=== PATIENT | male | born 1960 | race Caucasian/White ===

== ENCOUNTER 2018-04-18 16:50 | Observation (INO) ==
--- NOTE | 2018-04-18 17:52 | Emergency Department Note ---
Disposition Clinical Impression: Jaundice, Scleral icterus, Transaminitis, Hyperbilirubinemia Disposition: Admitted As Inpatient Condition: Good Referrals: NONE,PCP [Primary Care Provider] - Edel Lim [Family Provider] - Forms: ED Satisfaction Letter Time of Disposition: 20:40 General Adult HPI - General Chief complaint: ED Weakness Stated complaint: Dark Urine / Weakness / Jaundice Time Seen by Provider: 04/18/18 17:24 Source: patient Mode of arrival: ambulatory Limitations: no limitations Nursing Notes Reviewed: Yes Vital Signs Reviewed: Yes - History of Present Illness HPI Narrative: Patient is a 57-year-old male that presents emergency department for painless jaundice. Patient states is been ongoing for the past 3-4 days. Patient states that he ate at a [employer] restaurant and started having vomiting and diarrhea couple hours after eating. Patient states he thought that this was likely food poisoning. Patient states that the jaundice then began to develop and his gastrointestinal symptoms continued. Patient states that he has no abdominal pain or chest pain. Patient states he only pain is located in his shoulders. Patient states that his urine is become very dark but does not know if there is any blood in it. Patient denies any blood in his stool. Patient states that he has a history of IV drug use. Patient states that he was recently released from alf and was tested for hepatitis and it was negative. Pain Scale: 8 - Related Data Previous Rx's Medication Instructions Recorded Oseltamivir [Tamiflu] 75 mg PO BID #10 capsule 12/08/17 Allergies Allergy/AdvReac Type Severity Reaction Status Date / Time No Known Allergies Allergy Verified 12/08/17 09:11 All systems ED: reviewed and negative except as stated. Cardiovascular: Denies: chest pain Respiratory: Reports: dyspnea Gastrointestinal: Reports: nausea, vomiting, diarrhea. Denies: abdominal pain Genitourinary: Reports: other (Dark colored urine) Past Medical History - Past Medical History Medical history: Reports: no medical history Psychiatric history: Reports: no psych history - Social History Smoking Status: Former smoker Smokeless Tobacco Status: No Alcohol use: Reports: none Drug use: Reports: none, other Physical Exam - General Limitations: no limitations General appearance: alert, in no apparent distress - Head Head exam: atraumatic, normocephalic - Eye Eye exam: Present: normal appearance, EOMI, scleral icterus - Neck Neck exam: Present: normal inspection, full ROM, trachea midline - Respiratory Respiratory exam: Present: normal lung sounds bilaterally. Absent: respiratory distress, wheezes - Cardiovascular Cardiovascular exam: Present: regular rate, normal rhythm, normal heart sounds, +S1, +S2 - Abdominal Exam Abdominal exam: Present: soft, Non-Tender, normal bowel sounds - Neurological Exam Neurological exam: Present: alert, oriented X3 - Psychiatric Psychiatric exam: Present: normal affect, normal mood - Skin Skin exam: Present: warm, dry, intact, other (Jaundice ) Course Vital Signs Temperature 97.9 F 04/18/18 17:08 Pulse Rate 79 04/18/18 17:08 Respiratory Rate 16 04/18/18 17:08 Blood Pressure 172/98 04/18/18 17:08 O2 Sat by Pulse Oximetry 98 04/18/18 17:08 Temperature 97.9 F 04/18/18 17:08 Pulse Rate 67 04/18/18 20:43 Respiratory Rate 18 04/18/18 20:43 Blood Pressure 102/72 04/18/18 20:43 O2 Sat by Pulse Oximetry 100 04/18/18 20:43 Oxygen Delivery Oxygen Delivery Room Air Medical Decision Making - MDM Narrative Medical decision making narrative: Due the patient presented to the emergency department for jaundice and vomiting with diarrhea we will obtain laboratory testing as well as CT imaging of the abdomen and pelvis. We will wait for the patient's renal function to return prior to we will give the patient iv contrast. Patient has a significant transaminitis. Patient's CT scan showed evidence of possible hepatitis. Patient's alcohol was negative. Patient's urinalysis did show evidence of a urinary tract infection. Patient will be given a dose of Rocephin here in the emergency department. The patient will need to be admitted to the hospital for further evaluation and management. The remainder of the patient's hepatitis panel is pending. I feel that the patient likely has a diagnosis of hepatitis based on the laboratory findings and the CT scan being consistent with hepatitis. I called and spoke with the admitting hospitalist Dr. Bhatia and he is except the patient to their service. Patient be admitted to the hospital this time for further evaluation and management. - Medical Records Medical records reviewed: Yes I reviewed the patient's medical records. - Lab Data Lab results reviewed: Yes I reviewed the patient's lab results. Result diagrams: 04/18/18 17:39 04/18/18 17:32 Lab Results 04/18/18 04/18/18 04/18/18 Range/Units 17:32 17:39 17:39 WBC 8.9 (4.3-11.1) K/mcL RBC 4.49 (4.19-5.50) M/mcL Hgb 14.9 (12.9-16.9) g/dL Hct 42.7 (37.5-50.1) % MCV 95.1 (83.0-100.0) fL MCH 33.2 (28.0-33.3) pg MCHC 34.9 (31.6-35.5) g/dL RDW 13.9 (11.5-14.5) % Plt Count 308 (140-400) K/mcL MPV 10.4 (9.4-12.4) fL Immature Gran % 0.3 (0-4) % Seg Neutrophils % 31.0 % Lymphocytes % 50.8 % Monocytes % 12.0 % Eosinophils % 5.3 % Basophils % 0.6 % Neutrophils # 2.8 (1.6-8.9) K/mcL Lymphocytes # 4.5 (0.6-4.6) K/mcL Monocytes # 1.1 (0.0-1.3) K/mcL Eosinophils # 0.5 (0.0-0.6) K/mcL Basophils # 0.1 (0.0-0.2) K/mcL Platelet Estimate Normal (Normal) Sodium 135 L (136-145) mEq/L Potassium 3.9 (3.5-5.1) mEq/L Chloride 103 (98-107) mEq/L Carbon Dioxide 25 (23-29) mEq/L BUN 10 (6-20) mg/dL Creatinine 1.10 (0.70-1.30) mg/dL Est GFR ( Amer) > 60 (> 60) Est GFR (Non-Af Amer) > 60 (> 60) BUN/Creatinine Ratio 9 (6-26) Glucose 88 (70-105) mg/dL Calculated Osmolality 278 L (280-300) Lactic Acid (0.5-2.2) mmol/L Calcium 9.1 (8.6-10.3) mg/dL Magnesium 2.0 (1.6-2.6) mg/dL Total Bilirubin 18.1 H (0.3-1.0) mg/dL GGT 179 H (2-30) Units/L AST 592 H (13-39) Units/L ALT > 500 H (7-52) Units/L Alkaline Phosphatase 259 H (34-104) Units/L Troponin I < 0.03 (< 0.04) ng/mL Serum Total Protein 7.0 (6.4-8.9) g/dL Albumin 3.6 (3.5-5.7) g/dL Globulin 3.4 (2.4-3.5) g/dL Albumin/Globulin Ratio 1.1 (1.1-2.2) Lipase 75 (11-82) Units/L Urine Color (Yellow) Urine Clarity (Clear) Urine pH (5.0-8.0) pH Units Ur Specific [place] (1.010-1.025) Urine Protein (Neg-Trace) mg/dL Urine Glucose (UA) (Normal) mg/dL Urine Ketones (Negative) mg/dL Urine Blood (Negative) Urine Nitrite (Negative) Urine Bilirubin (Negative) Urine Urobilinogen (Normal) mg/dL Ur Leukocyte Esterase (Negative) Urine Microscopic RBC (0-3) per hpf Urine Microscopic WBC (0-3) per hpf Ur Squamous Epith Cells (None-Few) per lpf Urine Bacteria (None-Few) per hpf Hyaline Casts (None-Few) per lpf Granular Casts (None Seen) per lpf Ur Culture Indicated? (NO) Ethyl Alcohol < 10 (Less than 10) mg/dL Hep Bs Antigen Nonreactive (Nonreactive) 04/18/18 04/18/18 Range/Units 17:43 18:10 WBC (4.3-11.1) K/mcL RBC (4.19-5.50) M/mcL Hgb (12.9-16.9) g/dL Hct (37.5-50.1) % MCV (83.0-100.0) fL MCH (28.0-33.3) pg MCHC (31.6-35.5) g/dL RDW (11.5-14.5) % Plt Count (140-400) K/mcL MPV (9.4-12.4) fL Immature Gran % (0-4) % Seg Neutrophils % % Lymphocytes % % Monocytes % % Eosinophils % % Basophils % % Neutrophils # (1.6-8.9) K/mcL Lymphocytes # (0.6-4.6) K/mcL Monocytes # (0.0-1.3) K/mcL Eosinophils # (0.0-0.6) K/mcL Basophils # (0.0-0.2) K/mcL Platelet Estimate (Normal) Sodium (136-145) mEq/L Potassium (3.5-5.1) mEq/L Chloride (98-107) mEq/L Carbon Dioxide (23-29) mEq/L BUN (6-20) mg/dL Creatinine (0.70-1.30) mg/dL Est GFR ( Amer) (> 60) Est GFR (Non-Af Amer) (> 60) BUN/Creatinine Ratio (6-26) Glucose (70-105) mg/dL Calculated Osmolality (280-300) Lactic Acid 0.6 (0.5-2.2) mmol/L Calcium (8.6-10.3) mg/dL Magnesium (1.6-2.6) mg/dL Total Bilirubin (0.3-1.0) mg/dL GGT (2-30) Units/L AST (13-39) Units/L ALT (7-52) Units/L Alkaline Phosphatase (34-104) Units/L Troponin I (< 0.04) ng/mL Serum Total Protein (6.4-8.9) g/dL Albumin (3.5-5.7) g/dL Globulin (2.4-3.5) g/dL Albumin/Globulin Ratio (1.1-2.2) Lipase (11-82) Units/L Urine Color [place] A (Yellow) Urine Clarity Cloudy A (Clear) Urine pH 6.0 (5.0-8.0) pH Units Ur Specific [place] 1.014 (1.010-1.025) Urine Protein Trace (Neg-Trace) mg/dL Urine Glucose (UA) Normal (Normal) mg/dL Urine Ketones Trace H (Negative) mg/dL Urine Blood Negative (Negative) Urine Nitrite Positive A (Negative) Urine Bilirubin Large H (Negative) Urine Urobilinogen Normal (Normal) mg/dL Ur Leukocyte Esterase Small H (Negative) Urine Microscopic RBC 0-3 (0-3) per hpf Urine Microscopic WBC 0-3 (0-3) per hpf Ur Squamous Epith Cells Moderate H (None-Few) per lpf Urine Bacteria Few (None-Few) per hpf Hyaline Casts Few (None-Few) per lpf Granular Casts Few H (None Seen) per lpf Ur Culture Indicated? YES A (NO) Ethyl Alcohol (Less than 10) mg/dL Hep Bs Antigen (Nonreactive) - Radiology Data Radiology results reviewed: Yes I reviewed the patient's radiology results. - EKG Data EKG #1 EKG attestation: Yes I reviewed and interpreted this EKG. EKG results narrative: EKG shows sinus rhythm at a rate of 62 beats from it, AK interval 155, QRS duration of 88, QTc of 437 with a normal axis. There is no evidence of STEMI and EKG. Attestation Statement - Attestation Attestation: I examined this patient and my medical decision-making was reviewed with the Resident Physician, Dr. Conner. I agree with the documented findings, disposition and treatment plan as described except to the extent set forth below. Patient is 57-year-old white male who presents to emergency permit today with complaints of generalized weakness and malaise, following a episode of vomiting and diarrhea that he had 3-4 days ago following eating a meal at [employer]. No one else who ate with him was sick, patient experienced some vomiting and diarrhea followed by general eyes weakness and fatigue. Patient denies any blood in the stool, no significant abdominal pain or cramping, no back pain or urinary symptoms. Patient with persistent almost flulike symptoms without any preceding URI symptoms or cough. Patient denies any history of EtOH, and no history of liver disease. Patient is grossly jaundiced with scleral icterus and this is new for him and denies any prior history of hepatitis, no IV drug use. I agree with patient's physical exam findings as documented. Vital signs are stable. Patient's resting comfortably in no acute distress. Patient presents with painless jaundice and some viral like symptoms suspicious clinically for hepatitis. Patient denies any recent blood transfusions or IV drug abuse history. Patient is afebrile here. She underwent full lab evaluation. Patient had an EKG which shows a normal sinus rhythm with no acute ischemia. Patient's chest x-rays unremarkable. Patient's labs show elevated bilirubin and alkaline phosphatase and elevated transaminases. Patient also with the presence of UTI which we started IV antibiotics for here. Patient was sent for CT abdomen and pelvis which was unremarkable with the exception of nonspecific findings reflective of possible hepatitis. Hepatitis panel was sent and is pending at this time. EtOH was negative. Patient agrees with admission and case was discussed with hospitalist who accepted patient for further evaluation and management.
[2018-04-18] MEDS ORDERED: Isovue-370 500 ML INFUS..BTL IV ONE (17:54)
[2018-04-18 17:58] LABS: Bilirubin,Urine Large (Negative); Blood,Urine Negative (Negative); Clarity,Urine Cloudy (Clear); Color,Urine Orange (Yellow); Glucose,Urine (UA) Normal (Normal); Ketones,Urine Trace mg/dL (Negative); Leukocyte Esterase,Urine Small (Negative); Nitrite,Urine Positive (Negative); Protein,Urine Trace mg/dL (Neg-Trace); Specific Gravity,Urine 1.014 (1.010-1.025); Urobilinogen,Urine Normal (Normal)
[2018-04-18 18:00] LABS: Squamous Epithelial Cell,Urine Moderate per lpf (None-Few); WBC,Urine 0-3 per hpf (0-3)
[2018-04-18 18:04] LABS: Basophils # 0.1 K/mcL (0.0-0.2); Basophils % 0.6 %; Eosinophils # 0.5 K/mcL (0.0-0.6); Eosinophils % 5.3 %; Hematocrit 42.7 % (37.5-50.1); Hemoglobin 14.9 g/dL (12.9-16.9); Immature Granulocytes % 0.3 % (0-4); Lymphocytes # 4.5 K/mcL (0.6-4.6); Lymphocytes % 50.8 %; Mean Corpuscular HGB Conc 34.9 g/dL (31.6-35.5); Mean Corpuscular Hemoglobin 33.2 pg (28.0-33.3); Mean Corpuscular Volume 95.1 fL (83.0-100.0); Mean Platelet Volume 10.4 fL (9.4-12.4); Monocytes # 1.1 K/mcL (0.0-1.3); Neutrophils # 2.8 K/mcL (1.6-8.9); Platelet Count 308 K/mcL (140-400); Red Blood Count 4.49 M/mcL (4.19-5.50); Red Cell Distribution Width 13.9 % (11.5-14.5)
[2018-04-18 18:11] LABS: Platelet Estimate Normal (Normal)
[2018-04-18 18:12] LABS: Bacteria,Urine Few per hpf (None-Few); Granular Casts,Urine Few per lpf (None Seen); Hyaline Casts,Urine Few per lpf (None-Few); RBC,Urine 0-3 per hpf (0-3)
[2018-04-18 18:25] LABS: Alanine Aminotransferase > 500 Units/L (7-52); Albumin 3.6 g/dL (3.5-5.7); Albumin/Globulin Ratio 1.1 (1.1-2.2); Alkaline Phosphatase 259 Units/L (34-104); Aspartate Amino Transferase 592 Units/L (13-39); BUN/Creatinine Ratio 9 (6-26); Bilirubin,Total 18.1 mg/dL (0.3-1.0); Blood Urea Nitrogen 10 mg/dL (6-20); Calcium 9.1 mg/dL (8.6-10.3); Carbon Dioxide 25 mEq/L (23-29); Chloride 103 mEq/L (98-107); Ethanol < 10 mg/dL (Less than 10); Gamma Glutamyl Transpeptidase 179 Units/L (2-30); Globulin 3.4 g/dL (2.4-3.5); Glucose 88 mg/dL (70-105); Lipase 75 Units/L (11-82); Osmolality,Calculated 278 (280-300); Potassium 3.9 mEq/L (3.5-5.1); Sodium 135 mEq/L (136-145); Troponin I < 0.03 ng/mL (< 0.04); eGFR For Non-African Americans > 60 (> 60)
[2018-04-18 18:38] LABS: Hepatitis B Surface Antigen Nonreactive (Nonreactive)
[2018-04-18] MEDS ORDERED: cefTRIAXone 1,000 MG in Water for inj. (sterile) 20 ML 10 ML IVP ONE (19:56)
[2018-04-19] MEDS ORDERED: Naloxone 0.4 MG/ML INJ IVP PRN (01:17)
[2018-04-19] MEDS ORDERED: Ondansetron ODT 4 MG TAB.RAPDIS SL PRN (01:17)
--- NOTE | 2018-04-19 01:23 | Internal Med History&Physical ---
Date of Encounter: 04/19/18 Time of Encounter: 01:11 Internal Medicine - H&P: HPI Chief complaint: vomiting & diarrhea Admitted From: Home Plans for Post Hospital Care: Home History of present illness: Mr. Martinez is a 57 year old male presented to ED for five days of nausea, vomiting, and diarrhea on set 2 hours after eating at [employer]. His bowel movements are frequent loose brown green. He reports jaundice started 4 days ago - also fever, chills and malaise. Denies abdominal pain but reports pain in shoulders and neck. He notes his urine is dark but no painful urination. In ED, afebrile and vitals stable with mild hypotension 96/64. Hep B negative. Given ceftriaxone. UA was orange with large billirubin- positive nitrates but small esterase with moderate number of squamous cells- treated with. EtOH level negative. 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 His twin sister also had enlarged spleen and no family history of IBS or IBD. He was recently released from imprisonment were he was tested for hepatitis and HIV last August. He has a history of IV drug use and cocaine but denies sharing needles. He denies EtOH use and denies distant history of EtOH abuse. Never smoker. He takes no medications. No recent travel and no sick contacts. Past Med Surg Social Fam HX - Past Medical History Medical history: no medical history Psychiatric history: no psych history - Past Surgical History Additional surgical history: scar tissue cut away d/t splenectomy when child - Social History Smoking Status: Former smoker Smokeless Tobacco Status: No Alcohol use: none Drug use: none, other Internal Medicine - H&P: Meds No Known Home Drugs 04/18/18 [History] 3 Allergy/AdvReac Type Severity Reaction Status Date / Time No Known Allergies Allergy Verified 12/08/17 09:11 All Systems PM: A 10-system review of systems was performed and is negative for pertinent findings except as documented above in the HPI. - Constitutional Constitutional: chills, fatigue, fever(s), malaise, weakness, no weight gain, no weight loss - EENT Eyes: no blurry vision, no loss of vision - Cardiovascular Cardiovascular ROS IM: dyspnea on exertion, no chest pain, no irregular heart rhythm, no lightheadedness, no palpitations, no syncope - Respiratory Respiratory: dyspnea on exertion, no cough, no wheezing - Gastrointestinal Gastrointestinal: diarrhea, nausea, vomiting, no abdominal pain, no change in stool character, no coffee ground emesis, no cramping - Genitourinary Genitourinary ROS male: no dysuria, no genital pain, no urinary frequency, no urinary hesitancy, no urinary urgency - Musculoskeletal Musculoskeletal ROS IM: myalgias, neck pain, stiffness, no arthralgias - Neurological Neurological ROS: no confusion, no headache(s) - Constitutional Vitals: Temp Pulse Resp BP Pulse Ox 97.9 F 57 14 100/69 95 04/18/18 23:00 04/18/18 23:00 04/18/18 23:00 04/18/18 23:00 04/18/18 23:00 General appearance: Present: cooperative, A&O X 3, answers questions appropriately Exam: jaundice, drowsy - Head Head exam: Present: atraumatic, normocephalic - Eye Eye exam: Present: EOMI, PERRL, scleral icterus Pupils: Present: miosis, normal accommodation. Absent: fixed - ENT ENT exam: Present: mucous membranes dry, normal oropharynx - Respiratory Respiratory exam: Present: CTAB. Absent: rales, wheezes - Cardiovascular Cardiovascular exam: Present: RRR. Absent: gallop, rubs - GI/Abdominal GI/Abdominal exam: Present: hyperactive bowel sounds, soft. Absent: hepatomegaly, mass, rigid, tenderness - Extremities Exam Extremities exam: Present: full ROM, radial pulses palpable and symmetrical. Absent: pedal edema, tenderness Internal Med - H&P Results - Labs CBC & Chem 7: 04/19/18 02:00 04/19/18 02:00 - Assessment and plan (1) Transaminitis Current Visit: Yes Status: Acute Assessment and plan: Suspicious of hepatitis A given history but still awaiting full hepatitis panel. AST 447, ALT >500, GGT 179, Alk Phos 229. Normal Lipase. Lab only runs full hepatitis panel on MWF. - IVF 1L - treat pain cautiously Ultram 50 q8 - avoid Tylenol - INR - salicylate - US liver - consult GI (2) Hyperbilirubinemia Current Visit: Yes Status: Acute Assessment and plan: Elevated total billirubin with elevated direct 15.8 and indirect 6.2. indicative of hepatic damaged over hemolysis (3) Jaundice Current Visit: Yes Status: Acute (4) Scleral icterus Current Visit: Yes Status: Acute (5) UTI (urinary tract infection) Current Visit: Yes Status: Acute Assessment and plan: Asymptomatic male with positive nitrates - finished ceftriaxone IV Qualifiers: Urinary tract infection type: acute cystitis Hematuria presence: without hematuria Qualified Code(s): N30.00 - Acute cystitis without hematuria (6) DVT prophylaxis Current Visit: Yes Status: Acute Assessment and plan: ambulation - Time Spent With Patient Total time spent is greater than 50% in coordination of care (as documented) at patient's floor/unit and/or counseling patient: 25 - 35 minutes
[2018-04-19 02:20] LABS: Basophils # 0.1 K/mcL (0.0-0.2); Basophils % 0.6 %; Eosinophils # 0.7 K/mcL (0.0-0.6); Eosinophils % 7.7 %; Hemoglobin 13.8 g/dL (12.9-16.9); Immature Granulocytes % 0.5 % (0-4); Lymphocytes # 4.1 K/mcL (0.6-4.6); Lymphocytes % 45.7 %; Mean Corpuscular HGB Conc 35.4 g/dL (31.6-35.5); Mean Corpuscular Hemoglobin 33.6 pg (28.0-33.3); Mean Corpuscular Volume 94.9 fL (83.0-100.0); Mean Platelet Volume 10.3 fL (9.4-12.4); Monocytes % 11.7 %; Platelet Count 282 K/mcL (140-400); Red Blood Count 4.11 M/mcL (4.19-5.50); Red Cell Distribution Width 13.8 % (11.5-14.5); Segmented Neutrophils % 33.8 %
[2018-04-19 02:36] LABS: Alanine Aminotransferase > 500 Units/L (7-52); Alkaline Phosphatase 229 Units/L (34-104); Aspartate Amino Transferase 447 Units/L (13-39); Bilirubin,Direct 9.6 mg/dL (0.0-0.2); Bilirubin,Indirect 6.2 mg/dL (0.0-1.2); Bilirubin,Total 15.8 mg/dL (0.3-1.0); Globulin 3.1 g/dL (2.4-3.5); Total Protein 6.1 g/dL (6.4-8.9)
[2018-04-19 02:41] LABS: Platelet Estimate Normal (Normal); Reactive Lymphocytes Present (Not Present)
[2018-04-19 02:47] LABS: Alanine Aminotransferase > 500 Units/L (7-52); Albumin/Globulin Ratio 0.9 (1.1-2.2); Alkaline Phosphatase 236 Units/L (34-104); Aspartate Amino Transferase 441 Units/L (13-39); BUN/Creatinine Ratio 9 (6-26); Bilirubin,Total 16.2 mg/dL (0.3-1.0); Blood Urea Nitrogen 8 mg/dL (6-20); Calcium 8.8 mg/dL (8.6-10.3); Carbon Dioxide 23 mEq/L (23-29); Chloride 107 mEq/L (98-107); Globulin 3.2 g/dL (2.4-3.5); Glucose 105 mg/dL (70-105); Osmolality,Calculated 279 (280-300); Potassium 3.6 mEq/L (3.5-5.1); Sodium 135 mEq/L (136-145); Total Protein 6.2 g/dL (6.4-8.9); eGFR For Non-African Americans > 60 (> 60)
[2018-04-19] MEDS: traMADol 50 MG TABLET PO PRN ×3 (03:16→19:58)
[2018-04-19] MEDS: 0.9 % Sodium Chloride 1,000 ML IVC SCH ×2 (03:22→13:58)
[2018-04-19 05:09] LABS: Hepatitis C Virus Antibody Nonreactive (Nonreactive)
[2018-04-19 05:13] LABS: INR 1.4; Prothrombin Time 15.9 Seconds (9.4-12.1)
[2018-04-19 05:26] LABS: Hepatitis A Antibody IgM Reactive (Nonreactive)
[2018-04-19 06:23] LABS: Hepatitis B Core IgM Reactive (Nonreactive)
--- NOTE | 2018-04-19 09:25 | Gastroenterology Consult Note ---
<Ishmael Traore - Last Filed: 04/19/18 17:13> Date of Encounter: 04/19/18 Time of Encounter: 09:25 - Assessment and plan (1) Transaminitis Current Visit: Yes Status: Acute Assessment and plan: Patient presented with elevated liver enzymes; this is possibly secondary to hepatitis A - Laboratory analysis demonstrated the following: GGT 179, AST 592, 447; ALT greater than 500, alkaline phosphatase 259, 229 Abdomen/pelvis CT demonstrated: - Periportal low-attenuation; seen with acute hepatitis - Gastrohepatic and portacaval adenopathy Plan: - Patient may be discharged from GI standpoint. Patient should have antibody testing for hepatitis in 2-4 weeks outpatient. (2) Hyperbilirubinemia Current Visit: Yes Status: Acute Assessment and plan: Laboratory analysis demonstrated an elevated direct bilirubin at 15.8 and indirect at 6.2 - Unknown etiology at this time; possibly secondary to hepatitis - Currently on a clear liquid diet - Currently on IV fluids at 100 mils per hour (3) Hepatitis Current Visit: Yes Status: Acute Assessment and plan: Plan as above (4) UTI (urinary tract infection) Current Visit: Yes Status: Acute Assessment and plan: Management per primary team Qualifiers: Urinary tract infection type: acute cystitis Hematuria presence: without hematuria Qualified Code(s): N30.00 - Acute cystitis without hematuria - Time Spent With Patient Total time spent is greater than 50% in coordination of care (as documented) at patient's floor/unit and/or counseling patient: GI History of Present Illness - Data of Consult Requesting Physician: Deshawn Jackson MD - Consult Narrative History of present illness: Mr. Martinez is a 57 year old male who presented to the ED with chief complaint of nausea, vomiting, diarrhea after eating at [employer] 2 hours prior. He describes his bowel movements as frequent and loose. There were green in color. He reported jaundice that started 4 days ago. Also reported fevers, chills, and malaise. Denied having any abdominal pain. He had dark colored urine. Patient was shown to have a low blood pressure at 96/64 in the emergency department. He was given ceftriaxone. Hep B negative. Urine analysis demonstrated orange colored urine with large amount of bilirubin, as well as positive nitrates. Patient has a known history of IV drug use. Laboratory analysis demonstrated the following: GGT 179, AST 592, 447; ALT greater than 500, alkaline phosphatase 259, 229. Serology demonstrated positive hepatitis A IgM antibody, and had positive hepatitis B core antibody. Patient was seen and examined at bedside; he reports a marked improvement in his initial symptoms. He denies any nausea, vomiting, diarrhea, constipation, swelling, pruitis, fever, or chills. He still appears jaundiced and has scleral icterus, both of which he reports remain unchanged. He denies any prior episodes of this. He does admit to a history of IV drug use, as well as a history of incarceration. Denies recent travel, underlying liver disease, or any previous diagnosis of hepatitis. He has no further complaints at this time. 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 Absent: abdominal pain, bloating, change in bowel habits, constipation, diarrhea, nausea, vomiting - Constitutional Constitutional: as per HPI, no anorexia, no fatigue, no fever(s), no weight gain , no weight loss - EENT Ears: Present: as per HPI Nose, mouth and throat: Present: as per HPI. Absent: dysphagia - Cardiovascular Cardiovascular ROS: Present: as per HPI. Absent: chest pain - Respiratory Respiratory IM: Present: as per HPI. Absent: cough, dyspnea - Genitourinary Genitourinary: Present: change in color - Neurological ROS Neurological GI: Present: as per HPI - Hematologic/Lymphatic Hematologic/Lymphatic pediatric: Present: as per HPI - Musculoskeletal Musculoskeletal ROS GI: Present: as per HPI - Integumentary Integumentary GI: Present: jaundice, as per HPI. Absent: pruritis, rash, other - Psychiatric ROS Psychiatric GI: Present: as per HPI. Absent: anxiety - Endocrine Endocrine IM: Present: as per HPI - Constitutional Vitals: Temp Pulse Resp BP Pulse Ox 97.5 F L 51 16 101/59 96 04/19/18 06:32 04/19/18 06:32 04/19/18 06:32 04/19/18 06:32 04/19/18 06:32 - Head Head exam: Present: atraumatic, normal inspection, normocephalic - Eye Eye exam: Present: EOMI, scleral icterus - ENT ENT exam: Present: mucous membranes moist, normal exam - Neck Neck exam general surgery: Present: full ROM, normal inspection, supple, trachea midline. Absent: lymphadenopathy - Respiratory Respiratory exam: Present: CTAB. Absent: rales, rhonchi, wheezes - Cardiovascular Cardiovascular exam: Present: RRR, +S1, +S2. Absent: tachycardia - GI/Abdominal GI/Abdominal exam: Present: normal bowel sounds, soft, no peritoneal signs. Absent: hepatomegaly, mass - Expanded GI/Abdominal Exam GI/Abdominal exam expanded: Absent: Plummer's sign - Psychiatric Psychiatric exam: Absent: agitated, anxious - Skin Skin exam: Absent: normal color (jaundice) Results - Labs CBC & Chem 7: 04/19/18 02:00 04/19/18 02:00 Labs: Last Result Calcium 8.8 mg/dL (8.6-10.3) 04/19/18 02:00 Troponin I < 0.03 ng/mL (< 0.04) 04/18/18 17:32 Salicylates < 2.5 mg/dL (15.0-30.0) L 04/19/18 04:31 Entire Visit Hgb 13.8 g/dL (12.9-16.9) 04/19/18 02:00 Hct 39.0 % (37.5-50.1) 04/19/18 02:00 PT 15.9 Seconds (9.4-12.1) H 04/19/18 04:31 Total Bilirubin 16.2 mg/dL (0.3-1.0) H 04/19/18 02:00 AST 441 Units/L (13-39) H 04/19/18 02:00 ALT > 500 Units/L (7-52) H 04/19/18 02:00 Lipase 75 Units/L (11-82) 04/18/18 17:32 - ABG ABG results: PT/INR, D-dimer PT 15.9 Seconds (9.4-12.1) H 04/19/18 04:31 Consult Discharge Plan - Plan Referrals: NONE,PCP [Primary Care Provider] - Edel Lmi [Family Provider] - <Gul,Shira - Last Filed: 04/19/18 17:27> Date of Encounter: 04/19/18 Time of Encounter: 14:50 - Time Spent With Patient Total time spent is greater than 50% in coordination of care (as documented) at patient's floor/unit and/or counseling patient: GI History of Present Illness - Data of Consult Requesting Physician: Deshawn Jackson MD - Consult Narrative History of present illness: Mr. Martinez is a 57 year old male - Constitutional Vitals: Temp Pulse Resp BP Pulse Ox 97.8 F 58 16 99/64 98 04/19/18 14:13 04/19/18 14:13 04/19/18 14:13 04/19/18 14:13 04/19/18 14:13 Results - Labs CBC & Chem 7: 04/19/18 02:00 04/19/18 02:00 Labs: Last Result Calcium 8.8 mg/dL (8.6-10.3) 04/19/18 02:00 Troponin I < 0.03 ng/mL (< 0.04) 04/18/18 17:32 Salicylates < 2.5 mg/dL (15.0-30.0) L 04/19/18 04:31 Urine Opiates Screen Negative ng/mL (Qdjiem=161) 04/19/18 12:15 Entire Visit Hgb 13.8 g/dL (12.9-16.9) 04/19/18 02:00 Hct 39.0 % (37.5-50.1) 04/19/18 02:00 PT 15.9 Seconds (9.4-12.1) H 04/19/18 04:31 Total Bilirubin 16.2 mg/dL (0.3-1.0) H 04/19/18 02:00 AST 441 Units/L (13-39) H 04/19/18 02:00 ALT > 500 Units/L (7-52) H 04/19/18 02:00 Lipase 75 Units/L (11-82) 04/18/18 17:32 - ABG ABG results: PT/INR, D-dimer PT 15.9 Seconds (9.4-12.1) H 04/19/18 04:31 - Impressions Impressions Liver Ultrasound 04/19/18 11:30 IMPRESSION: 1. Nonspecific gallbladder wall thickening with a small amount of pericholecystic fluid. This could be related to underlying liver disease. No gallstones are seen. 2. Otherwise unremarkable right upper quadrant abdominal ultrasound. D/ / 04/19/2018 14:17:12 Eric Quinones MD / maria antonia Interpreting Provider: Eric Quinones MD - Attending Attestation I examined this patient and my medical decision-making was reviewed with the Resident Physician. I agree with the documented findings, disposition and treatment plan as described except to the extent set forth below. Patient seen with the resident Dr. Traore. Patient with no acute distress on examination does has jaundice. Assessment: Patient with acute hepatitis A with the elevated LFTs. Asymptomatic . Recommendation: Symptomatic treatment periodic lab.
--- NOTE | 2018-04-19 13:47 | Internal Med Progress Note ---
<Zeeshan Bell M - Last Filed: 04/19/18 13:42> Hospitalist Progress Note - Encounter Date of Encounter: 04/19/18 Time of Encounter: 13:00 - Subjective Interval History: Patient seen and examined at bedside. Patient alert and eating lunch. States he feels much improved from overnight. He would like to stay another day to make sure his labwork is improving but he does state that he feels well enough to go now. He continues to deny abdominal pain and states that he is starting to form stool. He has a good appetite now and has no emesis since last night. Nausea and pain are under control. No other complaints at this time. - Exam Vitals: Temp Pulse Resp BP Pulse Ox 97.9 F 53 16 95/56 98 04/19/18 10:58 04/19/18 10:58 04/19/18 10:58 04/19/18 10:58 04/19/18 10:58 Exam: General: A&O x 3, NAD, pleasant Heat: atraumatic normocephalic EYES: Icterus present, EOMI, PERRL Throat: MMM, Trachea midline, no lymphadenopathy noted CV: RRR, +s1 s2, grade 2 systolic murmur Resp: CTAB, no wheezes rales rhonchi ABD: mildly rigid and gaurded, no peritoneal signs, non-tender, no organomegaly Skin: +jaundice - Assessment and Plan (1) Hepatitis Current Visit: Yes Status: Acute Assessment and Plan: Suspect Hepatitis Infection 2/2 contaminated food - History strongly indicative of Hep A given recent outbreak + S/S - N/V/D x 5days, dark colored urine/jaundice/icterus x24hrs - Known history of IVDA; recently negative for Hep B/C and HIV at [facility] - Labs: AST 447, ALT>500, GGT 179, Alk Phos 229, TBili 18.1 (indirect 6.2). Lipase normal - Patient also slightly hyponatremic (hypotonic); consistent with Vomitting/ diarrhea - CT abd/pelvis: Periportal low-attenuation is noted. This is commonly seen with acute hepatitis. Primary biliary cirrhosis or congestive failure are alternative possibilities. No biliary ductal obstruction is evident. Gastrohepatic and portacaval adenopathy is noted. This is nonspecific, inflammatory versus neoplastic - Liver ultrasound: Nonspecific gallbladder wall thickening. No gallstones. Otherwise unremarkable. - Hepatitis Panel: + HepA IgM Ab, + HepB Core IgM Ab, -HepBs Ag, -HepC PLAN: - IVF, currently at 100mls/hr, plus tramdol for pain - Advance diet as tolerated - UDS and urine culture pending - Will trend transaminases to monitor for fulminant hepatitis - Appreciate GI consultation - Follow up outpatient for repeat HepB screening and close contact prophylaxis - Avoid Salicylates (2) DVT prophylaxis Current Visit: Yes Status: Acute Assessment and Plan: Encouraged ambulation (3) UTI (urinary tract infection) Current Visit: Yes Status: Acute Assessment and Plan: Asymptomatic UA positive for Leukocyte Esterase and Nitrites Rocephin given in ED Culture indicated, awaiting results - Time Spent with Patient Total time spent is greater than 50% in coordination of care (as documented) at patient's floor/unit and/or counseling patient: Internal Medicine: Result - Labs CBC & Chem 7: 04/19/18 02:00 04/19/18 02:00 Labs: Short CBC 04/19/18 Range/Units 02:00 WBC 8.9 (4.3-11.1) K/mcL Hgb 13.8 (12.9-16.9) g/dL Hct 39.0 (37.5-50.1) % Plt Count 282 (140-400) K/mcL Neutrophils # 3.0 (1.6-8.9) K/mcL BMP 04/19/18 02:00 Sodium 135 L Potassium 3.6 Chloride 107 Carbon Dioxide 23 BUN 8 Creatinine 0.86 Glucose 105 Calcium 8.8 Liver Function 04/19/18 04/19/18 Range/Units 02:00 02:00 Total Bilirubin 16.2 H 15.8 H (0.3-1.0) mg/dL Direct Bilirubin 9.6 H (0.0-0.2) mg/dL AST 441 H 447 H (13-39) Units/L ALT > 500 H > 500 H (7-52) Units/L Alkaline Phosphatase 236 H 229 H (34-104) Units/L Albumin 3.0 L 3.0 L (3.5-5.7) g/dL - ABG Interpretation ABG results: PT/INR, D-dimer PT 15.9 Seconds (9.4-12.1) H 04/19/18 04:31 - Impressions Impressions Liver Ultrasound 04/19/18 11:30 IMPRESSION: 1. Nonspecific gallbladder wall thickening with a small amount of pericholecystic fluid. This could be related to underlying liver disease. No gallstones are seen. 2. Otherwise unremarkable right upper quadrant abdominal ultrasound. D/ / Eric Quinones MD / Eric Quinones MD Interpreting Provider: Eric Quinones MD Consult Discharge Plan - Plan Referrals: NONE,PCP [Primary Care Provider] - Michael LimConversio [Family Provider] - <Deshawn Jackson - Last Filed: 04/19/18 15:57> Hospitalist Progress Note - Encounter Date of Encounter: 04/19/18 - Exam Vitals: Temp Pulse Resp BP Pulse Ox 97.8 F 58 16 99/64 98 04/19/18 14:13 04/19/18 14:13 04/19/18 14:13 04/19/18 14:13 04/19/18 14:13 - Time Spent with Patient Total time spent is greater than 50% in coordination of care (as documented) at patient's floor/unit and/or counseling patient: Internal Medicine: Result - Labs CBC & Chem 7: 04/19/18 02:00 04/19/18 02:00 Labs: Short CBC 04/19/18 Range/Units 02:00 WBC 8.9 (4.3-11.1) K/mcL Hgb 13.8 (12.9-16.9) g/dL Hct 39.0 (37.5-50.1) % Plt Count 282 (140-400) K/mcL Neutrophils # 3.0 (1.6-8.9) K/mcL BMP 04/19/18 02:00 Sodium 135 L Potassium 3.6 Chloride 107 Carbon Dioxide 23 BUN 8 Creatinine 0.86 Glucose 105 Calcium 8.8 Liver Function 04/19/18 04/19/18 Range/Units 02:00 02:00 Total Bilirubin 16.2 H 15.8 H (0.3-1.0) mg/dL Direct Bilirubin 9.6 H (0.0-0.2) mg/dL AST 441 H 447 H (13-39) Units/L ALT > 500 H > 500 H (7-52) Units/L Alkaline Phosphatase 236 H 229 H (34-104) Units/L Albumin 3.0 L 3.0 L (3.5-5.7) g/dL - ABG Interpretation ABG results: PT/INR, D-dimer PT 15.9 Seconds (9.4-12.1) H 04/19/18 04:31 - Impressions Impressions Liver Ultrasound 04/19/18 11:30 IMPRESSION: 1. Nonspecific gallbladder wall thickening with a small amount of pericholecystic fluid. This could be related to underlying liver disease. No gallstones are seen. 2. Otherwise unremarkable right upper quadrant abdominal ultrasound. D/ / 04/19/2018 14:17:12 Eric Quinones MD / maria antonia Interpreting Provider: Eric Quinones MD - Attending Attestation The history, physical exam, and medical decision making was performed by the medical student either while I was physically present and actively involved or I personally re-performed the exam and medical decision making. I have verified the accuracy of the medical student's documentation with regards to the history, physical exam findings, and medical decision making. He should hospitalized with acute hepatitis A. Liver enzymes and bilirubin trending down. Clinically getting better. Continue supportive care. Plan on discharge tomorrow if he continues to do well and liver enzymes continued to trend downwards. Will need outpatient labs to recheck for hepatitis B. <Zeeshan Bell M - Last Filed: 04/19/18 13:42> (3) UTI (urinary tract infection) Qualifiers: Urinary tract infection type: acute cystitis Hematuria presence: without hematuria Qualified Code(s): N30.00 - Acute cystitis without hematuria
[2018-04-19 13:51] LABS: Amphetamine Screen,Urine Positive ng/mL (Cutoff=1000); Barbiturate Screen,Urine Negative ng/mL (Cutoff=200); Benzodiazepines Screen,Urine Negative ng/mL (Cutoff=200); Cannabinoid Screen,Urine Negative ng/mL (Cutoff = 50); Cocaine Screen,Urine Negative ng/mL (Cutoff= 300); Opiate Screen,Urine Negative ng/mL (Cutoff=300); Phencyclidine Screen,Urine Negative ng/mL (Cutoff=25)
[2018-04-20] MEDS: 0.9 % Sodium Chloride 1,000 ML IVC SCH (00:05)
[2018-04-20 05:10] LABS: Red Cell Distribution Width 14.4 % (11.5-14.5)
[2018-04-20 05:19] LABS: Hematocrit 40.5 % (37.5-50.1); Hemoglobin 14.1 g/dL (12.9-16.9); Immature Platelets 7.2 % (1.1-6.1); Mean Corpuscular HGB Conc 34.8 g/dL (31.6-35.5); Mean Corpuscular Hemoglobin 33.3 pg (28.0-33.3); Mean Corpuscular Volume 95.5 fL (83.0-100.0); Mean Platelet Volume 10.9 fL (9.4-12.4); Red Blood Count 4.24 M/mcL (4.19-5.50)
[2018-04-20 05:40] LABS: Alanine Aminotransferase > 500 Units/L (7-52); Albumin 2.7 g/dL (3.5-5.7); Albumin/Globulin Ratio 0.9 (1.1-2.2); Alkaline Phosphatase 218 Units/L (34-104); Aspartate Amino Transferase 261 Units/L (13-39); BUN/Creatinine Ratio 8 (6-26); Blood Urea Nitrogen 7 mg/dL (6-20); Calcium 8.5 mg/dL (8.6-10.3); Carbon Dioxide 23 mEq/L (23-29); Chloride 108 mEq/L (98-107); Glucose 107 mg/dL (70-105); Osmolality,Calculated 278 (280-300); Potassium 4.2 mEq/L (3.5-5.1); Sodium 135 mEq/L (136-145); Total Protein 5.7 g/dL (6.4-8.9); eGFR For Non-African Americans > 60 (> 60)
--- NOTE | 2018-04-20 07:58 | Discharge Summary ---
<Zeeshan Bell M - Last Filed: 04/20/18 08:46> Date of Encounter: 04/20/18 - Discharge Diagnosis (1) Hepatitis Status: Acute (2) DVT prophylaxis Status: Acute (3) UTI (urinary tract infection) Status: Acute Qualifiers: Urinary tract infection type: acute cystitis Hematuria presence: without hematuria Qualified Code(s): N30.00 - Acute cystitis without hematuria Hospital course: Mr. Martinez is a 57 year old male who presented to [facility] on 04/18/18 with complaints of nausea, vomitting, diarrhea for the past 5 days which progressed to yellow coloring of the skin and eyes in addition to dark colored urine. He also had complaints of fever, chills and malaise but denied any abdominal pain. The onset of these symptoms was 2 hours after eating food at [facility]. In the ED he was afebrile but did appear jaundiced with very prominent scleral icterus. Vitals remained stable throughout his hospital admission with the exception of some mild hypertension in the ED and some mild hypotension after administration of tramadol. A urinalysis revealed dark colored urine which was positive for Leukocyte esterase and nitrites, he was without symptoms of a UTI but he was given 1g Ceftriaxone. Significant labs were AST 447, ALT>500, GGT 179, Alk Phos 229, TBili 18.1 (indirect 6.2). CT Abd/Pelvis revealed some gastrohepatic adenopathy and periportal low-attenuation, consistent with hepatitis. Liver ultrasound revealed some gallbladder wall thickening, no evidence of stones, and a normal appearing liver. There was no evidence of biliary duct dilation. He was admitted for presumed hepatitis pending a full viral hepatitis panel. On 04/19/18 his hepatitis panel came back positive for HepA and HepB core IgM Ab. He was started on IV fluids, given tramadol for pain and was allowed to advance his diet as tolerated. On hospital day two his symptoms dramatically improved and he began eating a full diet, which he tolerated well. A urine drug screen did come back positive for amphetamines and his urine culture was still pending at the time of discharge. Gastroenterology was consulted for the patient and they were agreeable to discharge with instructions to follow-up outpatient in one to two weeks for repeat hepatitis B antibody testing. At the time of discharge the patient was still markedly jaundiced but his symptoms have resolved. - Time Spent with Patient Total time spent providing and/or coordinating discharge services: - Discharge Medications Home Medications: No Known Home Drugs 04/18/18 [History] Allergies/Adverse Reactions: 3 Allergy/AdvReac Type Severity Reaction Status Date / Time No Known Allergies Allergy Verified 12/08/17 09:11 Date of admission: 04/18/18 21:47 Primary care physician: PCP NONE Consults: 04/19/18 01:26 Consult to Gastroenterology [CONS] Routine Consulting Provider: Gastroenterology [facility] Reason for Consult: hyperbillirubienemia, transaminitis, jaundice Call Completed: No - Constitutional Vitals: Temp Pulse Resp BP Pulse Ox 98.3 F 68 14 113/70 96 04/20/18 05:44 04/20/18 05:44 04/20/18 05:44 04/20/18 05:44 04/20/18 07:44 - Patient Status Disposition: Home, Self-Care Condition: Good - Discharge Instructions Follow Up With: Marshal Jimenze DO [Resident] - 04/28/18 10:00 am Additional Instructions: Please obtain blood work in 2 weeks in the outpatient lab as we discussed. This lab work is for a hepatitis profile (checking for Hepatitis B resolution, chronicity). Thanks. <Marshal Jimenez - Last Filed: 04/20/18 14:39> - NOTES TO OUTPATIENT PROVIDER Notes to Outpatient Provider: Hep A +; Hep B + window period, repeat Hepatitis profile in lab orders to be done 2 weeks post-discharge ~ end of Apr/early May. Date of Encounter: 04/20/18 Time of Encounter: 09:00 - Discharge Diagnosis (1) Hepatitis Priority: Primary Status: Acute (2) Jaundice Priority: Secondary Status: Acute (3) Scleral icterus Priority: Secondary Status: Acute (4) Transaminitis Priority: Secondary Status: Acute (5) Hyperbilirubinemia Priority: Secondary Status: Acute (6) UTI (urinary tract infection) Priority: Secondary Status: Acute Qualifiers: Urinary tract infection type: acute cystitis Hematuria presence: without hematuria Qualified Code(s): N30.00 - Acute cystitis without hematuria (7) DVT prophylaxis Priority: Secondary Status: Acute Hospital course: Hospital course as documented above. Discharge discussed with: patient - Time Spent with Patient Total time spent providing and/or coordinating discharge services: Greater than 30 minutes Date of admission: 04/18/18 21:47 Primary care physician: PCP NONE Consults: 04/19/18 01:26 Consult to Gastroenterology [CONS] Routine Consulting Provider: Gastroenterology Janny Reason for Consult: hyperbillirubienemia, transaminitis, jaundice Call Completed: No - Constitutional Vitals: Temp Pulse Resp BP Pulse Ox 98.3 F 68 14 113/70 96 04/20/18 05:44 04/20/18 05:44 04/20/18 05:44 04/20/18 05:44 04/20/18 07:44 General appearance: Present: cooperative, A&O X 3, no acute distress, answers questions appropriately Exam: . - Head Head exam: Present: atraumatic, normocephalic - Eye Eye exam: Present: EOMI, scleral icterus (improving), conjuntiva pink - Neck Neck exam general surgery: Present: supple, trachea midline. Absent: lymphadenopathy - Respiratory Respiratory exam: Present: CTAB. Absent: accessory muscle use, rales, rhonchi, wheezes - Cardiovascular Cardiovascular exam: Present: RRR, +S1, +S2. Absent: diastolic murmur, gallop, rubs, systolic murmur - GI/Abdominal GI/Abdominal exam: Present: normal bowel sounds, soft, no peritoneal signs. Absent: distended, tenderness - Extremities Exam Extremities exam: Present: warm, radial pulses palpable and symmetrical. Absent : calf tenderness, cyanotic, pedal edema - Neurological Exam Neurological exam: Present: CN II-XII intact, oriented X3, no focal deficits. Absent: pronater drift, facial droop, speech deficit - Skin Skin exam: Present: dry, intact Additional comments: jaundice (improving) - Patient Status Functional capacity at discharge: independent ambulation Overall status at discharge: patient is progressing back to baseline - Diet and Activity Activity: increase activity as tolerated Diet: advance to your usual diet <Bg Javed - Last Filed: 04/20/18 17:21> Date of Encounter: 04/20/18 - Discharge Diagnosis (1) Acute hepatitis A Priority: Primary Status: Acute (2) Hepatitis B core antibody positive Priority: Secondary Status: Acute (3) Transaminitis Status: Acute (4) UTI (urinary tract infection) Status: Acute Qualifiers: Urinary tract infection type: acute cystitis Hematuria presence: without hematuria Qualified Code(s): N30.00 - Acute cystitis without hematuria Hospital course: Mr. Martinez is a 57 year old male - Time Spent with Patient Total time spent providing and/or coordinating discharge services: Date of admission: 04/18/18 21:47 Primary care physician: PCP NONE Consults: 04/19/18 01:26 Consult to Gastroenterology [CONS] Routine Consulting Provider: Gastroenterology [place] Reason for Consult: hyperbillirubienemia, transaminitis, jaundice Call Completed: No - Constitutional Vitals: Temp Pulse Resp BP Pulse Ox 97.5 F L 64 14 97/64 93 04/20/18 10:18 04/20/18 10:18 04/20/18 10:18 04/20/18 10:18 04/20/18 10:18 - Attending Attestation I examined this patient and my medical decision-making was reviewed with the Resident Physician on 04/20/18. I agree with the documented findings, disposition and treatment plan as described except to the extent set forth below. Mr Martinez has been hospitalized due to jaundice related to acute hepatitis A. He is tolerating diet. He is currently afebrile and ready for discharge home Exam alert Comfortable at this time Mucus membranes dry Heart reg No wheeze Abd soft Plan D/C home today.
[2018-04-20 10:20] VITALS: BP 97/64
--- NOTE | 2018-04-22 17:46 | Electrocardiograph Report ---
[address] [place] [id number] Test Date: 2018-04-18 Pat Name: Gabriel Martinez Department: [id number] Room: 3A44 Gender: Used Car Manager: : 1960 Requested By: Rona Pinto Order Number: [id number] Reading MD: Jannette Louis Measurements Intervals [place] Rate: 62 P: 64 ID: [id number] QRS: 50 QRSD: 88 T: 62 QT: 430 QTc: 437 Interpretive Statements Sinus rhythm Electronically Signed On 04-22-2018 17:44:23 EDT by Jannette Louis
== END 2018-04-20 14:16 | disposition home or self-care (01) ==
LOC: 3ANU 16:50 → EMEROOARM 16:50 → SUATTDRO 21:47 → 3ANU 22:18
PROVIDERS: ADMIT Family Medicine; ATTEND Internal Medicine

== ENCOUNTER 2018-09-12 23:50 | Inpatient (IN) ==
[2018-09-13] MEDS ORDERED: Ondansetron 4 MG/2 ML VIAL IVP ONE (01:18)
[2018-09-13] MEDS ORDERED: 0.9 % Sodium Chloride 1,000 ML IVC ONE (01:18)
[2018-09-13] MEDS ORDERED: Isovue-370 500 ML BOTTLE IVP ONE (01:19)
[2018-09-13 02:32] LABS: Basophils % 0.2 %; Eosinophils # 0.2 K/mcL (0.0-0.6); Eosinophils % 1.5 %; Hematocrit 39.1 % (37.5-50.1); Hemoglobin 13.7 g/dL (12.9-16.9); Immature Granulocytes % 0.3 % (0-4); Lymphocytes # 1.7 K/mcL (0.6-4.6); Lymphocytes % 11.8 %; Mean Corpuscular Hemoglobin 32.7 pg (28.0-33.3); Mean Corpuscular Volume 93.3 fL (83.0-100.0); Mean Platelet Volume 9.2 fL (9.4-12.4); Monocytes # 0.7 K/mcL (0.0-1.3); Monocytes % 4.5 %; Neutrophils # 11.8 K/mcL (1.6-8.9); Platelet Count 296 K/mcL (140-400); Red Blood Count 4.19 M/mcL (4.19-5.50); Red Cell Distribution Width 12.7 % (11.5-14.5); Segmented Neutrophils % 81.7 %
[2018-09-13 02:40] LABS: INR 1.1; Prothrombin Time 12.8 Seconds (9.4-12.1)
[2018-09-13 02:42] LABS: Activated Partial Thrombo Time 40.6 Seconds (26.0-36.0)
--- NOTE | 2018-09-13 02:42 | Emergency Department Note ---
Disposition Clinical Impression: Small bowel obstruction Disposition: Admitted As Inpatient Condition: Fair Forms: ED Satisfaction Letter, Work/School Release Time of Disposition: 04:48 Abdominal Pain HPI - General Chief Complaint: ED Abdominal Pain Stated Complaint: Abdominal Pain Time Seen by Provider: 09/13/18 00:39 Source: EMS Mode of arrival: ambulatory Nursing Notes Reviewed: Yes Vital Signs Reviewed: Yes - History of Present Illness HPI Narrative: Patient is a 58-year-old male presenting with abdominal pain. Patient states he has history of hepatitis A. Per patient and his significant other in the room, patient began to have pain actually 5 days ago significantly worse today. Patient describes the pain to be in the middle of his abdomen and sharp shooting in nature, has had some nausea with dry heaving, no actual vomiting no hematemesis. Has not had any diarrhea. Per the celiac and other, he has been much more fatigued and sleepy today, became concerned when his pain increased. Patient denies any chest pain, shortness of breath, lightheaded or dizziness. H e denies any change in urination. No fever or chills, no cough, no congestion. Patient denies history of similar symptoms in the past. Patient denies IV drug use or history of recent alcohol intake. Per family, she felt as though he was becoming slightly confused. In discussing with the patient, he denies confusion, is alert and oriented 3 in the room. Pain Scale: 10 - Related Data Home Medications Medication Instructions Recorded Confirmed No Known Home Drugs 04/18/18 04/18/18 Allergies Allergy/AdvReac Type Severity Reaction Status Date / Time No Known Allergies Allergy Verified 06/08/18 13:39 All systems ED: reviewed and negative except as stated. Review of Systems: As Per HPI Constitutional: Denies: fever ENT ED: Denies: congestion Cardiovascular: Denies: chest pain, edema, syncope Respiratory: Denies: cough, dyspnea, wheezes Gastrointestinal: Reports: abdominal pain, nausea. Denies: vomiting, diarrhea, constipation, hematemesis, melena, hematochezia Genitourinary: Denies: urgency, dysuria, frequency Musculoskeletal: Denies: back pain Integumentary: Denies: rash Neurological: Reports: confusion. Denies: headache, weakness Abdominal Pain PMH - Past Medical History Medical history: Reports: no medical history Male Surgical History: Reports: splenectomy, other Psychiatric history: Reports: no psych history - Social History Smoking status: Current every day smoker Alcohol use: Reports: occasionally Drug use: Reports: none Physical Exam - General Limitations: no limitations General appearance: alert, in no apparent distress, other (Is actively shutting his eyes during examination, will open his eyes with prompting) - Head Head exam: atraumatic, normocephalic, normal inspection - Eye Eye exam: Present: normal appearance, PERRL, EOMI - ENT ENT exam: normal exam, normal oropharynx, mucous membranes moist - Neck Neck exam: Present: normal inspection, full ROM, trachea midline - Chest Chest inspection: Present: normal inspection, symmetric chest wall rise - Respiratory Respiratory exam: Present: normal lung sounds bilaterally - Cardiovascular Cardiovascular exam: Present: regular rate, normal rhythm, normal heart sounds - Abdominal Exam Abdominal exam: Present: soft, tenderness (Patient has significant mid abdominal pain into the epigastric region, no right upper quadrant tenderness, voluntary guarding no rebound ). Absent: distention, guarding, rebound, rigidity - Extremities Exam Extremities exam: Present: normal inspection, full ROM. Absent: tenderness, pedal edema - Expanded Lower Extremity Exam Neurovascular/Tendon exam: Absent: motor deficit, sensory deficit, tendon deficit - Back Exam Back exam: Present: normal inspection, full ROM. Absent: tenderness - Neurological Exam Neurological exam: Present: alert, oriented X3, other (Patient is alert and oriented 3, with prompting he does open his eyes he does communicating cooperative with examination, however immediately shuts his eyes after answering the question) - Psychiatric Psychiatric exam: Present: normal affect, normal mood - Skin Skin exam: Present: warm, dry, intact, normal color Course Vital Signs Temperature 98.0 F 09/13/18 00:33 Pulse Rate 65 09/13/18 00:33 Respiratory Rate 16 09/13/18 00:33 Blood Pressure 122/80 09/13/18 00:33 O2 Sat by Pulse Oximetry 99 09/13/18 00:33 Temperature 98.0 F 09/13/18 00:33 Pulse Rate 62 09/13/18 03:40 Respiratory Rate 19 09/13/18 03:40 Blood Pressure 118/78 09/13/18 03:40 O2 Sat by Pulse Oximetry 100 09/13/18 03:40 Oxygen Delivery Oxygen Delivery Room Air Abdominal Pain - MDM Narrative Medical decision making narrative: Patient is a 58 her old male presenting with abdominal pain. This is been ongoing over the last few days feeling worse over today. Patient was some nausea and dry heaving. No fevers or chills at home. On examination, patient is in no acute distress, however continues to close his eyes, alert and oriented 3, no neurological signs or symptoms on examination, no focal neurological changes, per significant other in the room, question will confusion, however at this point in time is appropriate during examination, he does close his eyes and state that he is very tired. Abdominal exam does show a mid abdominal tenderness, voluntary guarding without rebound. Patient is afebrile on arrival. CBC does show slight leukocytosis with a slight left shift, no anemia. BMP shows continued slight elevation in bilirubin, however, appears chronic and overall decreased, no transaminitis. Ammonia is 61, we will hold off at this point in time on lactulose as on the CT of the abdomen and pelvis was found that the patient had a low to partial grade small bowel obstruction. NG will be placed. This point in time I did discuss the findings with the patient, he will be admitted at this point. I do not feels though this 30 consult general surgery at this point as it is mild to partial obstruction, and patient is in no acute distress. - Medical Records Medical records reviewed: Yes I reviewed the patient's medical records. - Lab Data Lab results reviewed: Yes I reviewed the patient's lab results. Result diagrams: 09/13/18 02:21 09/13/18 02:21 Lab Results 09/13/18 09/13/18 09/13/18 Range/Units 02:21 02:21 02:21 WBC 14.5 H (4.3-11.1) K/mcL RBC 4.19 (4.19-5.50) M/mcL Hgb 13.7 (12.9-16.9) g/dL Hct 39.1 (37.5-50.1) % MCV 93.3 (83.0-100.0) fL MCH 32.7 (28.0-33.3) pg MCHC 35.0 (31.6-35.5) g/dL RDW 12.7 (11.5-14.5) % Plt Count 296 (140-400) K/mcL MPV 9.2 L (9.4-12.4) fL Immature Gran % 0.3 (0-4) % Seg Neutrophils % 81.7 % Lymphocytes % 11.8 % Monocytes % 4.5 % Eosinophils % 1.5 % Basophils % 0.2 % Neutrophils # 11.8 H (1.6-8.9) K/mcL Lymphocytes # 1.7 (0.6-4.6) K/mcL Monocytes # 0.7 (0.0-1.3) K/mcL Eosinophils # 0.2 (0.0-0.6) K/mcL Basophils # 0.0 (0.0-0.2) K/mcL PT 12.8 H (9.4-12.1) Seconds INR 1.1 APTT 40.6 H (26.0-36.0) Seconds Sodium 136 (136-145) mEq/L Potassium 4.0 (3.5-5.1) mEq/L Chloride 106 (98-107) mEq/L Carbon Dioxide 22 L (23-29) mEq/L BUN 23 H (6-20) mg/dL Creatinine 0.80 (0.70-1.30) mg/dL Est GFR ( Amer) > 60 (> 60) Est GFR (Non-Af Amer) > 60 (> 60) BUN/Creatinine Ratio 29 H (6-26) Glucose 117 H (70-105) mg/dL Calculated Osmolality 287 (280-300) Lactic Acid (0.5-2.2) mmol/L Calcium 9.7 (8.6-10.3) mg/dL Total Bilirubin 1.9 H (0.3-1.0) mg/dL Direct Bilirubin 0.4 H (0.0-0.2) mg/dL Indirect Bilirubin 1.5 H (0.0-1.2) mg/dL AST 19 (13-39) Units/L ALT 17 (7-52) Units/L Alkaline Phosphatase 83 (34-104) Units/L Ammonia (16-53) mcmol/L Troponin I < 0.03 (< 0.04) ng/mL Serum Total Protein 7.6 (6.4-8.9) g/dL Albumin 4.3 (3.5-5.7) g/dL Globulin 3.3 (2.4-3.5) g/dL Albumin/Globulin Ratio 1.3 (1.1-2.2) Lipase 29 (11-82) Units/L Urine Color (Yellow) Urine Clarity (Clear) Urine pH (5.0-8.0) pH Units Ur Specific [place] (1.010-1.025) Urine Protein (Neg-Trace) mg/dL Urine Glucose (UA) (Normal) mg/dL Urine Ketones (Negative) mg/dL Urine Blood (Negative) Urine Nitrite (Negative) Urine Bilirubin (Negative) Urine Urobilinogen (Normal) mg/dL Ur Leukocyte Esterase (Negative) Ur Culture Indicated? (NO) 09/13/18 09/13/18 09/13/18 Range/Units 02:21 04:33 04:48 WBC (4.3-11.1) K/mcL RBC (4.19-5.50) M/mcL Hgb (12.9-16.9) g/dL Hct (37.5-50.1) % MCV (83.0-100.0) fL MCH (28.0-33.3) pg MCHC (31.6-35.5) g/dL RDW (11.5-14.5) % Plt Count (140-400) K/mcL MPV (9.4-12.4) fL Immature Gran % (0-4) % Seg Neutrophils % % Lymphocytes % % Monocytes % % Eosinophils % % Basophils % % Neutrophils # (1.6-8.9) K/mcL Lymphocytes # (0.6-4.6) K/mcL Monocytes # (0.0-1.3) K/mcL Eosinophils # (0.0-0.6) K/mcL Basophils # (0.0-0.2) K/mcL PT (9.4-12.1) Seconds INR APTT (26.0-36.0) Seconds Sodium (136-145) mEq/L Potassium (3.5-5.1) mEq/L Chloride (98-107) mEq/L Carbon Dioxide (23-29) mEq/L BUN (6-20) mg/dL Creatinine (0.70-1.30) mg/dL Est GFR ( Amer) (> 60) Est GFR (Non-Af Amer) (> 60) BUN/Creatinine Ratio (6-26) Glucose (70-105) mg/dL Calculated Osmolality (280-300) Lactic Acid 1.1 (0.5-2.2) mmol/L Calcium (8.6-10.3) mg/dL Total Bilirubin (0.3-1.0) mg/dL Direct Bilirubin (0.0-0.2) mg/dL Indirect Bilirubin (0.0-1.2) mg/dL AST (13-39) Units/L ALT (7-52) Units/L Alkaline Phosphatase (34-104) Units/L Ammonia 61 H (16-53) mcmol/L Troponin I (< 0.04) ng/mL Serum Total Protein (6.4-8.9) g/dL Albumin (3.5-5.7) g/dL Globulin (2.4-3.5) g/dL Albumin/Globulin Ratio (1.1-2.2) Lipase (11-82) Units/L Urine Color Dark Yellow (Yellow) Urine Clarity Clear (Clear) Urine pH 5.5 (5.0-8.0) pH Units Ur Specific [place] > 1.030 H (1.010-1.025) Urine Protein Negative (Neg-Trace) mg/dL Urine Glucose (UA) Normal (Normal) mg/dL Urine Ketones 15 H (Negative) mg/dL Urine Blood Negative (Negative) Urine Nitrite Negative (Negative) Urine Bilirubin Moderate H (Negative) Urine Urobilinogen Normal (Normal) mg/dL Ur Leukocyte Esterase Negative (Negative) Ur Culture Indicated? NO (NO) - Radiology Data Radiology results reviewed: Yes I reviewed the patient's radiology results. Abdomen/Pelvis CT 09/13/18 01:20 IMPRESSION: Features of a mechanical small bowel obstruction (favor partial versus low-grade) with zone of transition in the left mid abdomen. Not clear if this could represent an internal hernia versus adhesion. Small-bowel follow-through may be of value. Normal appendix. Small volume abdominal ascites and mild periportal edema, the latter of which was seen on the prior exam. This may reflect underlying hepatocellular disease. Scattered small periaortic lymph nodes are unchanged, indeterminate though presumably reactive. D/ / Hayes Bains / aHyes Bains Interpreting Provider: Hayes Shin - Aleida Situation: Demographics, MOA Background: Presenting Complaint, Relevant PMH, Meds, & Allergies Assessment: Vital Signs, Course and respsone to treatment, Exam Concerns, Patient/Family Expectation, Pertinant Lab Results, Outstanding Labs Recommendation: Barrier(s) to disposition, Recommendation based on pending studies, treatments, or consults [email or web address] Report Given to: Dr. Maida Shin Repor Time: 06:00 (accepted)
[2018-09-13 02:57] LABS: Alanine Aminotransferase 17 Units/L (7-52); Albumin 4.3 g/dL (3.5-5.7); Albumin/Globulin Ratio 1.3 (1.1-2.2); Alkaline Phosphatase 83 Units/L (34-104); Aspartate Amino Transferase 19 Units/L (13-39); BUN/Creatinine Ratio 29 (6-26); Bilirubin,Direct 0.4 mg/dL (0.0-0.2); Bilirubin,Indirect 1.5 mg/dL (0.0-1.2); Bilirubin,Total 1.9 mg/dL (0.3-1.0); Blood Urea Nitrogen 23 mg/dL (6-20); Calcium 9.7 mg/dL (8.6-10.3); Carbon Dioxide 22 mEq/L (23-29); Chloride 106 mEq/L (98-107); Globulin 3.3 g/dL (2.4-3.5); Glucose 117 mg/dL (70-105); Lipase 29 Units/L (11-82); Osmolality,Calculated 287 (280-300); Sodium 136 mEq/L (136-145); Total Protein 7.6 g/dL (6.4-8.9); Troponin I < 0.03 ng/mL (< 0.04); eGFR For Non-African Americans > 60 (> 60)
[2018-09-13] MEDS ORDERED: *HR* FentaNYL (PF) 100 MCG/2 ML VIAL IVP ONE (04:18)
[2018-09-13 05:02] LABS: Bilirubin,Urine Moderate (Negative); Blood,Urine Negative (Negative); Clarity,Urine Clear (Clear); Color,Urine Dark Yellow (Yellow); Glucose,Urine (UA) Normal (Normal); Ketones,Urine 15 mg/dL (Negative); Leukocyte Esterase,Urine Negative (Negative); Nitrite,Urine Negative (Negative); PH,Urine 5.5 pH Units (5.0-8.0); Protein,Urine Negative (Neg-Trace); Specific Gravity,Urine > 1.030 (1.010-1.025); Urobilinogen,Urine Normal (Normal)
[2018-09-13] MEDS ORDERED: Ondansetron 4 MG/2 ML VIAL IVP PRN (05:43)
[2018-09-13] MEDS ORDERED: D5% in Lactated Ringers 1,000 ML IVC SCH (05:45)
[2018-09-13] MEDS ORDERED: Ketorolac 30 MG/ML VIAL IVP PRN (05:48)
--- NOTE | 2018-09-13 05:54 | Internal Med History&Physical ---
Date of Encounter: 09/13/18 Time of Encounter: 05:52 Internal Medicine - H&P: HPI Chief complaint: abdominal pain Admitted From: Home Plans for Post Hospital Care: Home History of present illness: Gabriel Martinez is a 58 year old man, former smoker with substance use disorder who was last admitted here in April 2018 after presenting with jaundice and found to have acute hepatitis A infection. He presents now with the complaint of abdominal pain that has been present for the past 6 days but worsened today. He localizes it to his mid-abdomen and describes it as sharp and colicky accompanied by dry heaving but no actual vomiting or diarrhea. He denied accompanying chest pain, shortness of breath, dizziness, fever or chills. No changes to bowel habits. Labs revealed a leukocyte of 14.5 and then improvement in his LFTs in comparison to the last time he was here. Serum ammonia was 61. CT of his abdomen and pelvis showed features of a mechanical small bowel obstruction with zone of transition in the left mid abdomen, small volume abdominal ascites and mild periportal edema which is seen on his prior exam. An NG tube was placed and he is admitted for further care. He is in disbelief at the finding of bowel obstruction as he says he moves his bowels every day. Of note, he has a history of congenital splenomegaly with splenectomy performed at 8 months of age and lysis of adhesions in 2009. Past medical, surgical and social history as noted above Family history reviewed and found non-contributory. Review of systems negative except as listed above. Vitals: Reviewed General: Well-developed white male lying in bed with notable asthenia and somnolence. Skin: Warm and supple HEENT: Dry mucous membranes. Slight scleral icterus. Neck: No lymphadenopathy. No JVD. No carotid bruits. No palpable thyroid. Chest: Normal thoracic expansion. Normal breath sounds. Clear to auscultation. Heart: Normal S1 & S2; rhythmic. No rubs or murmurs. Abdomen: Non-distended, soft and non-tender to palpation. No peritoneal reaction. Extremities: No clubbing, cyanosis or edema. No calf tenderness. Normal distal pulses. Neurological: Awake, alert and oriented to person, place and time. No focal d eficits. Psych: Affect appropriate. Past Med Surg Social Fam HX - Past Medical History Medical history: no medical history Psychiatric history: no psych history - Past Surgical History Additional surgical history: colon surgery - Social History Smoking Status: Current every day smoker Smokeless Tobacco Status: No Alcohol use: occasionally Drug use: none Internal Medicine - H&P: Meds No Known Home Drugs 04/18/18 [History] Allergy/AdvReac Type Severity Reaction Status Date / Time No Known Allergies Allergy Verified 06/08/18 13:39 All Systems PM: A 10-system review of systems was performed and is negative for pertinent findings except as documented above in the HPI. - Constitutional Vitals: Temp Pulse Resp BP Pulse Ox 98.0 F 62 19 118/78 100 09/13/18 00:33 09/13/18 03:40 09/13/18 03:40 09/13/18 03:40 09/13/18 03:40 Exam: As above. Internal Med - H&P Results - Labs CBC & Chem 7: 09/13/18 02:21 09/13/18 02:21 Labs: Short CBC 09/13/18 Range/Units 02:21 WBC 14.5 H (4.3-11.1) K/mcL Hgb 13.7 (12.9-16.9) g/dL Hct 39.1 (37.5-50.1) % Plt Count 296 (140-400) K/mcL Neutrophils # 11.8 H (1.6-8.9) K/mcL BMP 09/13/18 02:21 Sodium 136 Potassium 4.0 Chloride 106 Carbon Dioxide 22 L BUN 23 H Creatinine 0.80 Glucose 117 H Calcium 9.7 Cardiac Enzymes 09/13/18 Range/Units 02:21 Troponin I < 0.03 (< 0.04) ng/mL Liver Function 09/13/18 Range/Units 02:21 Total Bilirubin 1.9 H (0.3-1.0) mg/dL Direct Bilirubin 0.4 H (0.0-0.2) mg/dL AST 19 (13-39) Units/L ALT 17 (7-52) Units/L Alkaline Phosphatase 83 (34-104) Units/L Albumin 4.3 (3.5-5.7) g/dL Urine 09/13/18 Range/Units 04:48 Urine Color Dark Yellow (Yellow) Urine Clarity Clear (Clear) Urine pH 5.5 (5.0-8.0) pH Units Ur Specific [place] > 1.030 H (1.010-1.025) Urine Protein Negative (Neg-Trace) mg/dL Urine Glucose (UA) Normal (Normal) mg/dL - Impressions ITS Impressions Abdomen/Pelvis CT 09/13/18 01:20 IMPRESSION: Features of a mechanical small bowel obstruction (favor partial versus low-grade) with zone of transition in the left mid abdomen. Not clear if this could represent an internal hernia versus adhesion. Small-bowel follow-through may be of value. Normal appendix. Small volume abdominal ascites and mild periportal edema, the latter of which was seen on the prior exam. This may reflect underlying hepatocellular disease. Scattered small periaortic lymph nodes are unchanged, indeterminate though presumably reactive. D/ / Hayes Bains / Hayes Bains Interpreting Provider: Hayes Bains - Assessment and plan (1) Small bowel obstruction Current Visit: Yes Status: Acute Assessment and plan: The patient's localization of his abdominal pain seems to correlate with the tr ansition point of the focal obstruction on CT scan. His clinically benign exam, reports of daily bowel movements and lack of vomiting do indeed suggest that it may just be a partial obstruction which should resolve momentarily, the concern for a mechanical etiology with adhesions given his prior history of requiring lysis of adhesions warrants concern and perhaps evaluation and monitoring by the surgery service. Consultation will be requested. Will keep NPO, provide anti- emetics as needed, keep NGT to LIS and provide fluid resuscitation. (2) Somnolence Current Visit: Yes Status: Acute Assessment and plan: I am concerned that his new onset somnolence may be related to hepatic encephalopathy. Although his serum ammonia is mildly elevated at 61, these values typically do not necessarily have to correlate with clinical presentation. He is responsive and answers questions appropriately but he admits to feeling unusually fatigued and somnolent and his female motorboat mechanic inboard at bedside attests to this being a new feature tonight. If indeed it is the case, dehydration may be a causal factor or the bowel obstruction itself. With that said, we have to rule out drug intoxication given his history and therefore a UDS should be obtained first. He will be NPO with NGT inserted for his bowel obstruction and therefore if with further evaluation there remains a concern for HE, perhaps rectal lactulose could be considered. For now we will monitor him clinically and provide fluid resuscitation. (3) Jaundice Current Visit: Yes Status: Acute Assessment and plan: Mild scleral icterus noted on exam. His bilirubin is still mildly elevated at 1.9 with an indirect predominance but definitely has lowered from the high of 18 in April 2018 which shows recovery. Continued monitoring advised. (4) Hepatitis Current Visit: Yes Status: Chronic Assessment and plan: Noted to have suffered a bout of acute Hep A 4 months ago and his LFTs are currently showing signs of recovery. He is also seen to have Hep B core Ab positive but negative antigen which means he was previously in contact with the virus but his body seems to have cleared it spontaneously. (5) Substance use disorder Current Visit: Yes Status: Acute Assessment and plan: He denies use of illicit drugs. His UDS in Apr 2018 was positive for amphetamines. Will check UDS today. 5 minutes were spent counseling and educating the patient on this habit. director of perioperative services and resources were made available. (6) DVT prophylaxis Current Visit: Yes Status: Acute Assessment and plan: SubQ heparin ordered. - Time Spent With Patient Total time spent is greater than 50% in coordination of care (as documented) at patient's floor/unit and/or counseling patient: Greater than 35 minutes
--- NOTE | 2018-09-13 06:21 | Emergency Department Note ---
Disposition Clinical Impression: Small bowel obstruction Disposition: Admitted As Inpatient Condition: Fair General Adult HPI - General Chief complaint: ED Abdominal Pain Stated complaint: Abdominal Pain Time Seen by Provider: 09/13/18 00:39 Source: EMS Mode of arrival: ambulatory Limitations: no limitations Nursing Notes Reviewed: Yes Vital Signs Reviewed: Yes - History of Present Illness Pain Scale: 10 - Related Data Home Medications Medication Instructions Recorded Confirmed No Known Home Drugs 04/18/18 04/18/18 Allergies Allergy/AdvReac Type Severity Reaction Status Date / Time No Known Allergies Allergy Verified 06/08/18 13:39 Constitutional: Denies: fever ENT ED: Denies: congestion Cardiovascular: Denies: chest pain, edema, syncope Respiratory: Denies: cough, dyspnea, wheezes Gastrointestinal: Reports: abdominal pain, nausea. Denies: vomiting, diarrhea, constipation, hematemesis, melena, hematochezia Genitourinary: Denies: urgency, dysuria, frequency Musculoskeletal: Denies: back pain Integumentary: Denies: rash Neurological: Reports: confusion. Denies: headache, weakness Past Medical History - Past Medical History Medical history: Reports: no medical history Psychiatric history: Reports: no psych history - Social History Smoking Status: Current every day smoker Smokeless Tobacco Status: No Alcohol use: Reports: occasionally Drug use: Reports: none Physical Exam - General Limitations: no limitations General appearance: alert, in no apparent distress, other (Is actively shutting his eyes during examination, will open his eyes with prompting) Course Vital Signs Temperature 98.0 F 09/13/18 00:33 Pulse Rate 65 09/13/18 00:33 Respiratory Rate 16 09/13/18 00:33 Blood Pressure 122/80 09/13/18 00:33 O2 Sat by Pulse Oximetry 99 09/13/18 00:33 Temperature 97.9 F 09/13/18 08:10 Pulse Rate 75 09/13/18 08:10 Respiratory Rate 16 09/13/18 08:10 Blood Pressure 119/72 09/13/18 08:10 O2 Sat by Pulse Oximetry 98 09/13/18 08:22 Oxygen Delivery Oxygen Delivery Room Air,Bipap Medical Decision Making - Medical Records Medical records reviewed: Yes I reviewed the patient's medical records. - Lab Data Lab results reviewed: Yes I reviewed the patient's lab results. Result diagrams: 09/13/18 02:21 09/13/18 02:21 Lab Results 09/13/18 09/13/18 09/13/18 Range/Units 02:21 02:21 02:21 WBC 14.5 H (4.3-11.1) K/mcL RBC 4.19 (4.19-5.50) M/mcL Hgb 13.7 (12.9-16.9) g/dL Hct 39.1 (37.5-50.1) % MCV 93.3 (83.0-100.0) fL MCH 32.7 (28.0-33.3) pg MCHC 35.0 (31.6-35.5) g/dL RDW 12.7 (11.5-14.5) % Plt Count 296 (140-400) K/mcL MPV 9.2 L (9.4-12.4) fL Immature Gran % 0.3 (0-4) % Seg Neutrophils % 81.7 % Lymphocytes % 11.8 % Monocytes % 4.5 % Eosinophils % 1.5 % Basophils % 0.2 % Neutrophils # 11.8 H (1.6-8.9) K/mcL Lymphocytes # 1.7 (0.6-4.6) K/mcL Monocytes # 0.7 (0.0-1.3) K/mcL Eosinophils # 0.2 (0.0-0.6) K/mcL Basophils # 0.0 (0.0-0.2) K/mcL PT 12.8 H (9.4-12.1) Seconds INR 1.1 APTT 40.6 H (26.0-36.0) Seconds Sodium 136 (136-145) mEq/L Potassium 4.0 (3.5-5.1) mEq/L Chloride 106 (98-107) mEq/L Carbon Dioxide 22 L (23-29) mEq/L BUN 23 H (6-20) mg/dL Creatinine 0.80 (0.70-1.30) mg/dL Est GFR ( Amer) > 60 (> 60) Est GFR (Non-Af Amer) > 60 (> 60) BUN/Creatinine Ratio 29 H (6-26) Glucose 117 H (70-105) mg/dL Calculated Osmolality 287 (280-300) Lactic Acid (0.5-2.2) mmol/L Calcium 9.7 (8.6-10.3) mg/dL Total Bilirubin 1.9 H (0.3-1.0) mg/dL Direct Bilirubin 0.4 H (0.0-0.2) mg/dL Indirect Bilirubin 1.5 H (0.0-1.2) mg/dL AST 19 (13-39) Units/L ALT 17 (7-52) Units/L Alkaline Phosphatase 83 (34-104) Units/L Ammonia (16-53) mcmol/L Troponin I < 0.03 (< 0.04) ng/mL Serum Total Protein 7.6 (6.4-8.9) g/dL Albumin 4.3 (3.5-5.7) g/dL Globulin 3.3 (2.4-3.5) g/dL Albumin/Globulin Ratio 1.3 (1.1-2.2) Lipase 29 (11-82) Units/L Urine Color (Yellow) Urine Clarity (Clear) Urine pH (5.0-8.0) pH Units Ur Specific [place] (1.010-1.025) Urine Protein (Neg-Trace) mg/dL Urine Glucose (UA) (Normal) mg/dL Urine Ketones (Negative) mg/dL Urine Blood (Negative) Urine Nitrite (Negative) Urine Bilirubin (Negative) Urine Urobilinogen (Normal) mg/dL Ur Leukocyte Esterase (Negative) Ur Culture Indicated? (NO) Urine Opiates Screen (Pfrate=507) ng/mL Ur Barbiturates Screen (Jlmgmj=325) ng/mL Ur Phencyclidine Scrn (Cutoff=25) ng/mL Ur Amphetamines Screen (Aukukn=0086) ng/mL U Benzodiazepines Scrn (Gneibl=952) ng/mL Urine Cocaine Screen (Cutoff= 300) ng/mL U Marijuana (THC) Screen (Cutoff = 50) ng/mL Ur Drug Screen Interp 09/13/18 09/13/18 09/13/18 Range/Units 02:21 04:33 04:48 WBC (4.3-11.1) K/mcL RBC (4.19-5.50) M/mcL Hgb (12.9-16.9) g/dL Hct (37.5-50.1) % MCV (83.0-100.0) fL MCH (28.0-33.3) pg MCHC (31.6-35.5) g/dL RDW (11.5-14.5) % Plt Count (140-400) K/mcL MPV (9.4-12.4) fL Immature Gran % (0-4) % Seg Neutrophils % % Lymphocytes % % Monocytes % % Eosinophils % % Basophils % % Neutrophils # (1.6-8.9) K/mcL Lymphocytes # (0.6-4.6) K/mcL Monocytes # (0.0-1.3) K/mcL Eosinophils # (0.0-0.6) K/mcL Basophils # (0.0-0.2) K/mcL PT (9.4-12.1) Seconds INR APTT (26.0-36.0) Seconds Sodium (136-145) mEq/L Potassium (3.5-5.1) mEq/L Chloride (98-107) mEq/L Carbon Dioxide (23-29) mEq/L BUN (6-20) mg/dL Creatinine (0.70-1.30) mg/dL Est GFR ( Amer) (> 60) Est GFR (Non-Af Amer) (> 60) BUN/Creatinine Ratio (6-26) Glucose (70-105) mg/dL Calculated Osmolality (280-300) Lactic Acid 1.1 (0.5-2.2) mmol/L Calcium (8.6-10.3) mg/dL Total Bilirubin (0.3-1.0) mg/dL Direct Bilirubin (0.0-0.2) mg/dL Indirect Bilirubin (0.0-1.2) mg/dL AST (13-39) Units/L ALT (7-52) Units/L Alkaline Phosphatase (34-104) Units/L Ammonia 61 H (16-53) mcmol/L Troponin I (< 0.04) ng/mL Serum Total Protein (6.4-8.9) g/dL Albumin (3.5-5.7) g/dL Globulin (2.4-3.5) g/dL Albumin/Globulin Ratio (1.1-2.2) Lipase (11-82) Units/L Urine Color Dark Yellow (Yellow) Urine Clarity Clear (Clear) Urine pH 5.5 (5.0-8.0) pH Units Ur Specific [place] > 1.030 H (1.010-1.025) Urine Protein Negative (Neg-Trace) mg/dL Urine Glucose (UA) Normal (Normal) mg/dL Urine Ketones 15 H (Negative) mg/dL Urine Blood Negative (Negative) Urine Nitrite Negative (Negative) Urine Bilirubin Moderate H (Negative) Urine Urobilinogen Normal (Normal) mg/dL Ur Leukocyte Esterase Negative (Negative) Ur Culture Indicated? NO (NO) Urine Opiates Screen (Busehz=651) ng/mL Ur Barbiturates Screen (Jmcrbu=593) ng/mL Ur Phencyclidine Scrn (Cutoff=25) ng/mL Ur Amphetamines Screen (Osmbgx=6323) ng/mL U Benzodiazepines Scrn (Icxbvz=736) ng/mL Urine Cocaine Screen (Cutoff= 300) ng/mL U Marijuana (THC) Screen (Cutoff = 50) ng/mL Ur Drug Screen Interp 09/13/18 Range/Units 04:48 WBC (4.3-11.1) K/mcL RBC (4.19-5.50) M/mcL Hgb (12.9-16.9) g/dL Hct (37.5-50.1) % MCV (83.0-100.0) fL MCH (28.0-33.3) pg MCHC (31.6-35.5) g/dL RDW (11.5-14.5) % Plt Count (140-400) K/mcL MPV (9.4-12.4) fL Immature Gran % (0-4) % Seg Neutrophils % % Lymphocytes % % Monocytes % % Eosinophils % % Basophils % % Neutrophils # (1.6-8.9) K/mcL Lymphocytes # (0.6-4.6) K/mcL Monocytes # (0.0-1.3) K/mcL Eosinophils # (0.0-0.6) K/mcL Basophils # (0.0-0.2) K/mcL PT (9.4-12.1) Seconds INR APTT (26.0-36.0) Seconds Sodium (136-145) mEq/L Potassium (3.5-5.1) mEq/L Chloride (98-107) mEq/L Carbon Dioxide (23-29) mEq/L BUN (6-20) mg/dL Creatinine (0.70-1.30) mg/dL Est GFR ( Amer) (> 60) Est GFR (Non-Af Amer) (> 60) BUN/Creatinine Ratio (6-26) Glucose (70-105) mg/dL Calculated Osmolality (280-300) Lactic Acid (0.5-2.2) mmol/L Calcium (8.6-10.3) mg/dL Total Bilirubin (0.3-1.0) mg/dL Direct Bilirubin (0.0-0.2) mg/dL Indirect Bilirubin (0.0-1.2) mg/dL AST (13-39) Units/L ALT (7-52) Units/L Alkaline Phosphatase (34-104) Units/L Ammonia (16-53) mcmol/L Troponin I (< 0.04) ng/mL Serum Total Protein (6.4-8.9) g/dL Albumin (3.5-5.7) g/dL Globulin (2.4-3.5) g/dL Albumin/Globulin Ratio (1.1-2.2) Lipase (11-82) Units/L Urine Color (Yellow) Urine Clarity (Clear) Urine pH (5.0-8.0) pH Units Ur Specific [place] (1.010-1.025) Urine Protein (Neg-Trace) mg/dL Urine Glucose (UA) (Normal) mg/dL Urine Ketones (Negative) mg/dL Urine Blood (Negative) Urine Nitrite (Negative) Urine Bilirubin (Negative) Urine Urobilinogen (Normal) mg/dL Ur Leukocyte Esterase (Negative) Ur Culture Indicated? (NO) Urine Opiates Screen Negative (Hjrglj=040) ng/mL Ur Barbiturates Screen Negative (Obktfc=094) ng/mL Ur Phencyclidine Scrn Negative (Cutoff=25) ng/mL Ur Amphetamines Screen Negative (Cegjjk=5702) ng/mL U Benzodiazepines Scrn Negative (Ypsdus=068) ng/mL Urine Cocaine Screen Negative (Cutoff= 300) ng/mL U Marijuana (THC) Screen Negative (Cutoff = 50) ng/mL Ur Drug Screen Interp See Below - Radiology Data Radiology results reviewed: Yes I reviewed the patient's radiology results. Abdomen/Pelvis CT 09/13/18 01:20 IMPRESSION: Features of a mechanical small bowel obstruction (favor partial versus low grade) with zone of transition in the left mid abdomen. Not clear if this could represent an internal hernia versus adhesion. Small bowel follow-through may be of value. Normal appendix. Small volume abdominal ascites and mild periportal edema, the latter of which was seen on the prior exam. This may reflect underlying hepatocellular disease. Scattered small periaortic lymph nodes are unchanged, indeterminate though presumably reactive. D/ / 09/13/2018 07:15:39 Hayes Bains / soniya Interpreting Provider: Hayes Bains - EKG Data EKG #1 EKG attestation: Yes I reviewed and interpreted this EKG. EKG results narrative: EKG shows normal sinus rhythm with ventricular rate of 66. No ST segment elevation or depression. No arrhythmia or ectopy. Normal EKG. No change from prior EKG dated 04/18/2018. Attestation Statement - Attestation Attestation: I, Teo Maldonado MD, personally evaluated this patient and discussed their management with the resident physician. I reviewed the resident's note and agree with the documented findings, medical decision making, and plan of care. 58-year-old male presents to the emergency department with a complaint of generalized abdominal pain which is been having intermittently over the past few months. This episode started about 5 days ago but became acutely worse yesterday. Some nausea and vomiting. No GI bleed symptoms. No fever. No prior abdominal surgeries. On examination patient is a well-developed well-nourished male in no acute distress. He is alert and oriented 3. No cyanosis or diaphoresis. Breath sounds are clear and equal bilaterally. Heart regular rate and rhythm. Abdomen is soft with decreased bowel sounds. Moderate diffuse tenderness. Labs reviewed. Normal EKG. CT of the abdomen and pelvis shows a small bowel obstruction. The hospitalist, Dr. Bey, was consulted and accepted admission of the patient.
[2018-09-13 06:47] LABS: Amphetamine Screen,Urine Negative ng/mL (Cutoff=1000); Barbiturate Screen,Urine Negative ng/mL (Cutoff=200)
[2018-09-13 06:48] LABS: Benzodiazepines Screen,Urine Negative ng/mL (Cutoff=300); Cannabinoid Screen,Urine Negative ng/mL (Cutoff = 50); Cocaine Screen,Urine Negative ng/mL (Cutoff= 300); Opiate Screen,Urine Negative ng/mL (Cutoff=300); Phencyclidine Screen,Urine Negative ng/mL (Cutoff=25)
[2018-09-13] MEDS: *HR* Heparin 5,000 UNIT/ML VIAL SQ SCH ×2 (08:06→18:02)
--- NOTE | 2018-09-13 10:50 | General Surgery Consult Note ---
Date of Encounter: 09/13/18 Time of Encounter: 10:50 Assessment and Plan (1) Abdominal pain Current Visit: Yes Status: Acute Pt reports BMs daily, He also reports a BM today. States abdominal pain is intermittent Abdominal exam is benign We will proceed with a SBFT with gastrograffin Further recommendations pending Qualifiers: Abdominal location: generalized Qualified Code(s): R10.84 - Generalized abdominal pain (2) Somnolence Current Visit: Yes Status: Acute During the beginning of the assessment, the Patient reports a history of IV drug abuse. He states that his use was "months ago." He does not elaborate on his drug of choice. Notably concerning, throughout the assessment he and his significant other became drowsy and neither one of them could remain awake for a conversation. Both had eyes rolling to back of head and would fall asleep. He required repeated stimulation to arouse. Of note this ELECTRON BEAM WELDER did attempt to see the patient approximately 25 minutes ago at which time he was not in the bed. I entered the room and his significant other guarded the bathroom door and stated I "could not go in because he was using the bathroom." This CORPORATE CONCIERGE agreed to return shortly. Patient has an active IV. This CORPORATE CONCIERGE notified the bedside RN and recommended calling campus police as both are demonstrating signs of IV opiate use. I have ordered 0.4 mg IV Narcan. Reviewed findings with Dr. Hager. (3) IVDU (intravenous drug user) Current Visit: Yes Status: Acute History of Present Illness Consult date: 09/12/18 (Dr. Ree Bateman) Reason for consult: abdominal pain Requesting physician: John Falk History of present illness: Surgery has been consulted for recommendations regarding abdominal pain and possible small bowel obstruction patient's past medical, surgical, and social history have been reviewed per old record review and partial review with the patient Mr. Martinez is a 58-year-old male who presented on 09/13/2018 for complaints of generalized abdominal pain that has been present for 6 days but worsened that day. Per record review he was admitted in April 2018 after presenting with jaundice and found to have acute hepatitis A infection. 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 Review of systems and further history review is therefore limited. Past Med Surg Social Fam HX - Past Medical History Source: patient (Limited), old records reviewed Medical history: hepatitis (A&B) Psychiatric history: other (Addiction) - Past Surgical History Additional surgical history: splenectomy (as ). CHASITY 2009 - Social History Smoking Status: Current every day smoker Smokeless Tobacco Status: No Alcohol use: occasionally Drug use: IV Drug Use Medications and Allergies No Known Home Drugs 04/18/18 [History] Allergy/AdvReac Type Severity Reaction Status Date / Time No Known Allergies Allergy Verified 06/08/18 13:39 Review of Systems ROS unobtainable: due to mental status All systems PM: reviewed and no additional remarkable complaints except as stated All systems PM: The remainder of the systems were reviewed and are negative General Surgery Exam Initial Vital Signs Temp Pulse Resp BP Pulse Ox 98.0 F 65 16 122/80 99 09/13/18 00:33 09/13/18 00:09/13/18 00:33 09/13/18 00:33 09/13/18 00:33 - General physical appearance other (Drowsy. Unable to remain awake during conversation) - Respiratory normal expansion, clear to auscultation - Cardiovascular Cardiovascular exam: Present: RRR - Abdomen Abdomen general surgery: Present: bowel sounds present, soft, non tender, wound (NG tube in place) - Integumentary Integumentary general surgery: Present: warm and dry, no abnormal pigmentation, other (Multiple tattoos noted) - Neurologic Present: other (Drowsy. Unable to remain awake. Eyes rolled back in his head while attempting to keep eyelids open. See assessment and plan) - Musculoskeletal Present: other (Not assessed) - Psychiatric Psychiatric general surgery: Present: other (See above) Exam Initial Vital Signs Temp Pulse Resp BP Pulse Ox 98.0 F 65 16 122/80 99 09/13/18 00:33 09/13/18 00:33 09/13/18 00:33 09/13/18 00:33 09/13/18 00:33 Results - Labs 09/13/18 02:21 09/13/18 02:21 Abnormal lab results WBC 14.5 K/mcL (4.3-11.1) H 09/13/18 02:21 MPV 9.2 fL (9.4-12.4) L 09/13/18 02:21 Neutrophils # 11.8 K/mcL (1.6-8.9) H 09/13/18 02:21 PT 12.8 Seconds (9.4-12.1) H 09/13/18 02:21 APTT 40.6 Seconds (26.0-36.0) H 09/13/18 02:21 Carbon Dioxide 22 mEq/L (23-29) L 09/13/18 02:21 BUN 23 mg/dL (6-20) H 09/13/18 02:21 BUN/Creatinine Ratio 29 (6-26) H 09/13/18 02:21 Glucose 117 mg/dL (70-105) H 09/13/18 02:21 Total Bilirubin 1.9 mg/dL (0.3-1.0) H 09/13/18 02:21 Direct Bilirubin 0.4 mg/dL (0.0-0.2) H 09/13/18 02:21 Indirect Bilirubin 1.5 mg/dL (0.0-1.2) H 09/13/18 02:21 Ammonia 61 mcmol/L (16-53) H 09/13/18 02:21 Ur Specific [place] > 1.030 (1.010-1.025) H 09/13/18 04:48 Urine Ketones 15 mg/dL (Negative) H 09/13/18 04:48 Urine Bilirubin Moderate (Negative) H 09/13/18 04:48 Diabetes panel 09/13/18 Range/Units 02:21 Sodium 136 (136-145) mEq/L Potassium 4.0 (3.5-5.1) mEq/L Chloride 106 (98-107) mEq/L Carbon Dioxide 22 L (23-29) mEq/L BUN 23 H (6-20) mg/dL Creatinine 0.80 (0.70-1.30) mg/dL Glucose 117 H (70-105) mg/dL Calcium 9.7 (8.6-10.3) mg/dL AST 19 (13-39) Units/L ALT 17 (7-52) Units/L Alkaline Phosphatase 83 (34-104) Units/L Albumin 4.3 (3.5-5.7) g/dL Calcium panel 09/13/18 Range/Units 02:21 Calcium 9.7 (8.6-10.3) mg/dL Albumin 4.3 (3.5-5.7) g/dL Pituitary panel 09/13/18 Range/Units 02:21 Sodium 136 (136-145) mEq/L Potassium 4.0 (3.5-5.1) mEq/L Chloride 106 (98-107) mEq/L Carbon Dioxide 22 L (23-29) mEq/L BUN 23 H (6-20) mg/dL Creatinine 0.80 (0.70-1.30) mg/dL Glucose 117 H (70-105) mg/dL Calcium 9.7 (8.6-10.3) mg/dL Adrenal panel 09/13/18 Range/Units 02:21 Sodium 136 (136-145) mEq/L Potassium 4.0 (3.5-5.1) mEq/L Chloride 106 (98-107) mEq/L Carbon Dioxide 22 L (23-29) mEq/L BUN 23 H (6-20) mg/dL Creatinine 0.80 (0.70-1.30) mg/dL Glucose 117 H (70-105) mg/dL Calcium 9.7 (8.6-10.3) mg/dL Total Bilirubin 1.9 H (0.3-1.0) mg/dL AST 19 (13-39) Units/L ALT 17 (7-52) Units/L Alkaline Phosphatase 83 (34-104) Units/L Albumin 4.3 (3.5-5.7) g/dL All other labs normal. - Imaging CT scan - abdomen: report reviewed CT scan - pelvis: report reviewed Consult Discharge Plan - Plan Referrals: NONE,PCP [Primary Care Provider] -
[2018-09-13] MEDS ORDERED: Lactulose 200 GM, Sodium Chloride IRRigation 700 ML RC ONE (11:07)
[2018-09-13] MEDS ORDERED: Naloxone 0.4 MG/ML INJ IVP ONE (11:08)
--- NOTE | 2018-09-13 13:22 | Internal Med Progress Note ---
<Armin Otoole P - Last Filed: 09/13/18 15:37> Hospitalist Progress Note - Encounter Date of Encounter: 09/13/18 Time of Encounter: 09:00 - Subjective Interval History: He is 58 year old man, former smoker with substance use disorder who was last admitted here in April 2018 after presenting with jaundice and found to have acute hepatitis A infection. He presents now with the complaint of abdominal pain that has been present for the past 6 days but worsened today. He localizes it to his mid-abdomen and describes it as sharp and colicky accompanied by dry heaving but no actual vomiting or diarrhea. Small bowel Gastrograffin:Dilated small bowel loops left mid and upper abdomen with wall thickening concerning for partial small bowel obstruction.CT abdomen:Features of a mechanical small bowel obstruction (favor partial versus low grade) with zone of transition in the left mid abdomen. Today during my visit, the patient was lying on the bed, he was on NG tube, not in acute distress looks confused. He does not have any abdominal pain today. The patient does not have any nausea and vomiting, abdominal distention. He stated that he does have daily bowel movement but has not have bowel movement today. His vitals are stable, no fever, no abdominal distention - Exam Vitals: Temp Pulse Resp BP Pulse Ox 97.9 F 78 18 109/70 97 09/13/18 10:54 09/13/18 10:54 09/13/18 10:54 09/13/18 10:54 09/13/18 10:54 Exam: Gen: Alert, awake , Oriented to time,place and person Chest: Diminished BS b/l, No crackles, No rales, No wheezing Heart: S1S2+ RRR No Murmurs Abd: Soft, NT, BS + No organomegaly Ext: No edema, pulses are palpable, no tenderness Neuro: No focal neuro deficits Psych: Normal mood Skin: No rash - Assessment and Plan (1) Small bowel obstruction Current Visit: Yes Status: Acute Assessment and Plan: Patient presented with pain of abdomen on and off for last couple of days, getting worse recently Small bowel Gastrografin:Dilated small bowel loops left mid and upper abdomen with wall thickening concerning for partial small bowel obstruction. CT abdomen & pelvis:Features of a mechanical small bowel obstruction (favor partial versus low grade) with zone of transition in the left mid abdomen It is possible mechanical obstruction of small bowel. Surgery consultation has been done, he is on nothing by mouth and NG tube (2) Acute hepatitis A Current Visit: No Status: Acute Assessment and Plan: The patient has history of hepatitis C infection for last 3 month and he has normolized elevated liver enzyme, ammonia is elevated 61, bilirubin is high 1.9 We will closely monitor and re-assess later Has put on lactulose per rectum for hyperammonia. (3) Substance abuse Current Visit: Yes Status: Acute Assessment and Plan: The patient has history of substance abuse The patient reports history of drug abuse but he used to months ago History looks drowsy and difficult confused Urine for toxicology all negative. (4) Hyperammonemia Current Visit: Yes Status: Acute Assessment and Plan: Pulmonary level is 61, looks slightly elevated Given lactulose per rectum We will reassess tomorrow - Time Spent with Patient Total time spent is greater than 50% in coordination of care (as documented) at patient's floor/unit and/or counseling patient: Internal Medicine: Result - Labs CBC & Chem 7: 09/13/18 02:21 09/13/18 02:21 Labs: Short CBC 09/13/18 Range/Units 02:21 WBC 14.5 H (4.3-11.1) K/mcL Hgb 13.7 (12.9-16.9) g/dL Hct 39.1 (37.5-50.1) % Plt Count 296 (140-400) K/mcL Neutrophils # 11.8 H (1.6-8.9) K/mcL BMP 09/13/18 02:21 Sodium 136 Potassium 4.0 Chloride 106 Carbon Dioxide 22 L BUN 23 H Creatinine 0.80 Glucose 117 H Calcium 9.7 Cardiac Enzymes 09/13/18 Range/Units 02:21 Troponin I < 0.03 (< 0.04) ng/mL Liver Function 09/13/18 Range/Units 02:21 Total Bilirubin 1.9 H (0.3-1.0) mg/dL Direct Bilirubin 0.4 H (0.0-0.2) mg/dL AST 19 (13-39) Units/L ALT 17 (7-52) Units/L Alkaline Phosphatase 83 (34-104) Units/L Albumin 4.3 (3.5-5.7) g/dL Urine 02/04/19 Range/Units 04:48 Urine Color Dark Yellow (Yellow) Urine Clarity Clear (Clear) Urine pH 5.5 (5.0-8.0) pH Units Ur Specific Leighton > 1.030 H (1.010-1.025) Urine Protein Negative (Neg-Trace) mg/dL Urine Glucose (UA) Normal (Normal) mg/dL - ABG Interpretation ABG results: PT/INR, D-dimer PT 12.8 Seconds (9.4-12.1) H 09/13/18 02:21 - Impressions Impressions Abdomen/Pelvis CT 09/13/18 01:20 IMPRESSION: Features of a mechanical small bowel obstruction (favor partial versus low grade) with zone of transition in the left mid abdomen. Not clear if this could represent an internal hernia versus adhesion. Small bowel follow-through may be of value. Normal appendix. Small volume abdominal ascites and mild periportal edema, the latter of which was seen on the prior exam. This may reflect underlying hepatocellular disease. Scattered small periaortic lymph nodes are unchanged, indeterminate though presumably reactive. D/ / 09/13/2018 07:15:39 Hayes Bains / soniya Interpreting Provider: Hayes Bains Consult Discharge Plan - Plan Referrals: NONE,PCP [Primary Care Provider] - <Loida Bella - Last Filed: 09/13/18 15:56> Hospitalist Progress Note - Encounter Date of Encounter: 09/13/18 - Exam Vitals: Temp Pulse Resp BP Pulse Ox 97.9 F 78 18 109/70 97 09/13/18 10:54 09/13/18 10:54 09/13/18 10:54 09/13/18 10:54 09/13/18 10:54 - Assessment and Plan (1) Jaundice Current Visit: Yes Status: Acute (2) DVT prophylaxis Current Visit: Yes Status: Acute (3) Hepatitis Current Visit: Yes Status: Chronic (4) Small bowel obstruction Current Visit: Yes Status: Acute (5) Substance use disorder Current Visit: Yes Status: Acute (6) Somnolence Current Visit: Yes Status: Acute - Time Spent with Patient Total time spent is greater than 50% in coordination of care (as documented) at patient's floor/unit and/or counseling patient: Internal Medicine: Result - Labs CBC & Chem 7: 09/13/18 02:21 09/13/18 02:21 Labs: Short CBC 09/13/18 Range/Units 02:21 WBC 14.5 H (4.3-11.1) K/mcL Hgb 13.7 (12.9-16.9) g/dL Hct 39.1 (37.5-50.1) % Plt Count 296 (140-400) K/mcL Neutrophils # 11.8 H (1.6-8.9) K/mcL BMP 09/13/18 02:21 Sodium 136 Potassium 4.0 Chloride 106 Carbon Dioxide 22 L BUN 23 H Creatinine 0.80 Glucose 117 H Calcium 9.7 Cardiac Enzymes 09/13/18 Range/Units 02:21 Troponin I < 0.03 (< 0.04) ng/mL Liver Function 09/13/18 Range/Units 02:21 Total Bilirubin 1.9 H (0.3-1.0) mg/dL Direct Bilirubin 0.4 H (0.0-0.2) mg/dL AST 19 (13-39) Units/L ALT 17 (7-52) Units/L Alkaline Phosphatase 83 (34-104) Units/L Albumin 4.3 (3.5-5.7) g/dL Urine 09/13/18 Range/Units 04:48 Urine Color Dark Yellow (Yellow) Urine Clarity Clear (Clear) Urine pH 5.5 (5.0-8.0) pH Units Ur Specific Leighton > 1.030 H (1.010-1.025) Urine Protein Negative (Neg-Trace) mg/dL Urine Glucose (UA) Normal (Normal) mg/dL - ABG Interpretation ABG results: PT/INR, D-dimer PT 12.8 Seconds (9.4-12.1) H 09/13/18 02:21 - Impressions Impressions Abdomen/Pelvis CT 09/13/18 01:20 IMPRESSION: Features of a mechanical small bowel obstruction (favor partial versus low grade) with zone of transition in the left mid abdomen. Not clear if this could represent an internal hernia versus adhesion. Small bowel follow-through may be of value. Normal appendix. Small volume abdominal ascites and mild periportal edema, the latter of which was seen on the prior exam. This may reflect underlying hepatocellular disease. Scattered small periaortic lymph nodes are unchanged, indeterminate though presumably reactive. D/ / 09/13/2018 07:15:39 Hayes Bains / soniya Interpreting Provider: Hayes Bains Small Bowel X-Ray 09/13/18 11:01 IMPRESSION: Dilated small bowel loops left mid and upper abdomen with wall thickening concerning for partial small bowel obstruction. Contrast extends to the level of the rectum. Continued radiographic follow-up recommended. D/ / 09/13/2018 14:54:02 Adriano Sanchez MD / artis Interpreting Provider: Adriano Sanchez MD - Attending Attestation I examined this patient and my medical decision-making was reviewed with the Resident Physician Dr. Otoole. I agree with the documented findings, disposition and treatment plan as described except to the extent set forth below. Mr. Martinez is a 58 year old man, former smoker with substance use disorder who was last admitted here in April 2018 after presenting with jaundice and found to have acute hepatitis A infection. Now he presented to ER with the complaint of abdominal pain that has been present for the past 6 days but wo rsened today. Labs revealed a leukocyte of 14.5 and then improvement in his LFTs in comparison to the last time he was here. Serum ammonia was 61. CT of his abdomen and pelvis showed features of a mechanical small bowel obstruction with zone of transition in the left mid abdomen, small volume abdominal ascites and mild periportal edema which is seen on his prior exam. An NG tube was placed and he is admitted for further care. Today he is more alert, awake and oriented times 3. Still having abdominal discomfort. His NG tube showing clear secretions now. His small bowl foot x-ray showed dilated small bowel loops mid and upper abdomen with wall thickening concerning for partial small bowel obstruction. Contrast extends to the level of the rectum. At this point surgery recommended to discontinue NG tube and started him on clear liquid diet. Abd; Soft,Mild tender in lower abdomen region, no guarding / rigidity Chest: Diminished BS b/l Heart: S1S2+ RRR Gen: A, A< O x3 a/p 1. Acute SBO - partial SBO Improving possible gastroenteritis dc NG tube as per surgery recommendation clear liquid diet for now IVF 2. Acute non obstructive jaundice mostly due to recent Hep A infection improving trend on LFT's started on Lactulose PO 3. Substance abuse 4. ?? Alcohol dependence U/S of RUQ ordered
[2018-09-13] MEDS ORDERED: Lactulose 200 GM/300 ML (for enema) RC ONE (15:00)
[2018-09-13] MEDS: Lactulose Oral Soln 20 GM/30 ML UDC PO SCH (20:10)
[2018-09-13] MEDS ORDERED: Lactulose Oral Soln 20 GM/30 ML UDC PO SCH (21:00)
[2018-09-14 05:06] LABS: Basophils # 0.1 K/mcL (0.0-0.2); Basophils % 0.5 %; Eosinophils # 0.7 K/mcL (0.0-0.6); Eosinophils % 7.7 %; Hematocrit 37.5 % (37.5-50.1); Hemoglobin 12.8 g/dL (12.9-16.9); Immature Granulocytes % 0.3 % (0-4); Lymphocytes # 2.9 K/mcL (0.6-4.6); Lymphocytes % 32.1 %; Mean Corpuscular HGB Conc 34.1 g/dL (31.6-35.5); Mean Corpuscular Hemoglobin 32.6 pg (28.0-33.3); Mean Corpuscular Volume 95.4 fL (83.0-100.0); Mean Platelet Volume 9.9 fL (9.4-12.4); Monocytes # 0.9 K/mcL (0.0-1.3); Monocytes % 10.1 %; Neutrophils # 4.5 K/mcL (1.6-8.9); Platelet Count 283 K/mcL (140-400); Red Blood Count 3.93 M/mcL (4.19-5.50); Red Cell Distribution Width 12.7 % (11.5-14.5); Segmented Neutrophils % 49.3 %
[2018-09-14] MEDS: *HR* Heparin 5,000 UNIT/ML VIAL SQ SCH (05:14)
[2018-09-14 05:30] LABS: Alanine Aminotransferase 13 Units/L (7-52); Albumin 3.6 g/dL (3.5-5.7); Albumin/Globulin Ratio 1.3 (1.1-2.2); Alkaline Phosphatase 74 Units/L (34-104); Aspartate Amino Transferase 16 Units/L (13-39); BUN/Creatinine Ratio 25 (6-26); Bilirubin,Total 1.7 mg/dL (0.3-1.0); Blood Urea Nitrogen 21 mg/dL (6-20); Calcium 8.8 mg/dL (8.6-10.3); Carbon Dioxide 23 mEq/L (23-29); Chloride 106 mEq/L (98-107); Globulin 2.8 g/dL (2.4-3.5); Glucose 85 mg/dL (70-105); Osmolality,Calculated 290 (280-300); Potassium 3.8 mEq/L (3.5-5.1); Sodium 139 mEq/L (136-145); Total Protein 6.4 g/dL (6.4-8.9); eGFR For Non-African Americans > 60 (> 60)
[2018-09-14 07:43] VITALS: BP 95/55
[2018-09-14] MEDS: Lactulose Oral Soln 20 GM/30 ML UDC PO SCH (08:09)
--- NOTE | 2018-09-14 09:29 | Discharge Summary ---
<Armin Otoole P - Last Filed: 09/14/18 09:54> - NOTES TO OUTPATIENT PROVIDER Notes to Outpatient Provider: Follow-up with primary care provider within a week. Follow-up with general surgeon within 3-4 weeks. Take lactulose 10 g twice a day /as needed Orders not resulted at time of discharge: Pending orders 09/13/18 01:57 EKG [ECG 12 lead ECG] [ECG] Stat Date of Encounter: 09/14/18 Time of Encounter: 09:00 - Discharge Diagnosis (1) Small bowel obstruction Priority: Primary Status: Resolved (2) Acute hepatitis A Priority: Primary Status: Chronic (3) Hyperammonemia Priority: Primary Status: Resolved (4) Substance abuse Priority: Secondary Status: Chronic Hospital course: Mr. Martinez is a 58 year old male with former smoker with substance use disorder who was last admitted here in April 2018 after presenting with jaundice and found to have acute hepatitis A infection. He presented this time with the complaint of abdominal pain that has been present for the past 6 days but worsened recently. His belly pain is mid-abdominal and describes it as sharp and colicky accompanied by dry heaving but no actual vomiting or diarrhea. Small bowel Gastrograffin study :Dilated small bowel loops left mid and upper abdomen with wall thickening concerning for partial small bowel obstruction.CT abdomen: Features of a mechanical small bowel obstruction (favor partial versus low grade) with zone of transition in the left mid abdomen. The patient was admitted for nothing by mouth, NG tube placement and follow up with surgeon . The patient was improved with conservative treatment, has had a bowel movement, bowel sound was present. The patient well tolerated liquid diet and gradually transitioned to regular diet .He does not have any abdominal pain, abdominal distention, nausea and vomiting .she is hemodynamically stable .KUB x-ray done today showed : contrast has progressed almost completely passing through the small bowel. The dilated loops and morphologic changes seen on the prior CT corresponds with a partial bowel obstruction. We are planning to discharge him today and he will follow-up with primary care provider within a week. He will follow-up with surgeon Dr. Vergara within 3-4 weeks. - Time Spent with Patient Total time spent providing and/or coordinating discharge services: - Discharge Medications Prescriptions: Lactulose 10 gm PO BID PRN #30 udc PRN Reason: Constipation Home Medications: Lactulose 10 gm PO BID PRN #30 udc 09/14/18 [Rx] Allergies/Adverse Reactions: Allergy/AdvReac Type Severity Reaction Status Date / Time No Known Allergies Allergy Verified 06/08/18 13:39 Date of admission: 09/13/18 13:55 Primary care physician: PCP NONE Consults: 09/13/18 05:41 Consult to Surgery [CONS] Routine Consulting Provider: [facility] Reason for Consult: 58 year old man with a 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 presenting with mid-abdominal pain found to have a partial mechanical obstruction on CT Call Completed: Yes - Constitutional Vitals: Temp Pulse Resp BP Pulse Ox 97.9 F 79 19 95/55 98 09/14/18 07:42 09/14/18 07:42 09/14/18 07:42 09/14/18 07:42 09/14/18 08:35 General appearance: Present: A&O X 3, no acute distress, answers questions appropriately Exam: Gen: Alert, awake , Oriented to time,place and person Chest: Diminished BS b/l, No crackles, No rales, No wheezing Heart: S1S2+ RRR No Murmurs Abd: Soft, NT, BS + No organomegaly Ext: No edema, pulses are palpable, no tenderness Neuro: No focal neuro deficits Psych: Normal mood Skin: No rash - Patient Status Disposition: Home, Self-Care Condition: Good Functional capacity at discharge: independent ambulation Overall status at discharge: patient is progressing back to baseline - Discharge Instructions Instructions: Bowel Obstruction (DC) Follow Up With: Avni Vergara MD [Partnered Physician] - (Your appointment has been requested. Our offices will contact you with an appointment ) Rashawn Alexandra DO [Partnered Physician] - (Your appointment has been requested. Our offices will call you with an appointment time and date.) - Diet and Activity Activity: resume usual activities as tolerated Diet: regular diet <Loida Bella - Last Filed: 09/14/18 15:20> Date of Encounter: 09/14/18 - Discharge Diagnosis (1) Jaundice Status: Acute (2) DVT prophylaxis Status: Acute (3) Hepatitis Status: Chronic (4) Small bowel obstruction Status: Acute (5) Substance use disorder Status: Acute (6) Somnolence Status: Acute Hospital course: Mr. 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 Otoole. I agree with the documented findings, disposition and treatment plan as described except to the extent set forth below. Mr. Martinez is a 58 year old man, former smoker with substance use disorder who was last admitted here in April 2018 after presenting with jaundice and found to have acute hepatitis A infection. Now he presented to ER with the complaint of abdominal pain that has been present for the past 6 days but worsened today. Labs revealed a leukocyte of 14.5 and then improvement in his LFTs in comparison to the last time he was here. Serum ammonia was 61. CT of his abdomen and pelvis showed features of a mechanical small bowel obstruction with zone of transition in the left mid abdomen, small volume abdominal ascites and mild periportal edema which is seen on his prior exam. An NG tube was placed and he is admitted for further care. Today he is more alert, awake and oriented times 3. Still having abdominal discomfort. His NG tube showing clear secretions now. His small bowl foot x-ray showed dilated small bowel loops mid and upper abdomen with wall thickening concerning for partial small bowel obstruction. Contrast extends to the level of the rectum. At this point surgery recommended to discontinue NG tube and started him on clear liquid diet. He tolerated clear liquid diet well and he had BM last night. Advanced his diet which he tolerated well. So will d/c him home today. Abd; Soft,Mild tender in lower abdomen region, no guarding / rigidity Chest: Diminished BS b/l Heart: S1S2+ RRR Gen: A, A< O x3 a/p 1. Acute SBO - partial SBO Improved possible gastroenteritis 2. Acute non obstructive jaundice mostly due to recent Hep A infection improving trend on LFT's 3. Substance abuse 4. ?? Alcohol dependence
--- NOTE | 2018-09-14 09:51 | Event Note ---
Date of Encounter: 09/14/18 Time of Encounter: 09:51 Follow-up KUB is with nearly all contrast evacuated from the colon. Previous dilation and thickening have resolved. Okay to advance diet as tolerated and DC per primary team. No surgical follow-up indicated.
== END 2018-09-14 11:28 | disposition home or self-care (01) | DRG 247 ==
LOC: 3BNU 23:50 → EMEROOARM 23:50 → SUATTDRO 09-13 06:01 → 3BNU 09-13 07:34
PROVIDERS: ADMIT Internal Medicine; ATTEND Family Medicine